=== PATIENT | male | born 1960 | race Caucasian/White ===

== ENCOUNTER 2017-04-04 17:03 | Emergency (ER) | payer MEDICARE ==
[~2017-04-04] VITALS: Ht 193 cm; Wt 92.1 kg
[~2017-04-04 17:03] MED LIST: FLEXERIL10 MG PO; GRALISE600 MG PO; HYDROCODONE BI473 ML PO; IBU-8800 MG PO; INSULIN GL100 UNITS/ SC; KEFLEX500 MG PO; LISINOPRIL5 MG PO; LORTAB 5/500 501 TAB PO; MONTELUKAST SOD10 MG PO; MORPHINE SULFAT30 M3 PO; NOVOLOG FLEX100 U/ML SC; NOVOLOG MI100 UNITS1 SC; ONDANSETRON8 M2 PO; PREVACID 30MG C30 M1 PO; XANAX 1MG TABLET1 MG PO; ZOFRAN4 MG PO
--- OUTSIDE RECORDS SUMMARY | 2017-04-04 17:24 | External Medical Summary Rpt ---
Demographics Preferred Language Yoruba Marital Status Unknown Catholic Affiliation Unknown Race Unknown Ethnic Group Unknown Author Author DAMION Address Unknown Phone [email or web address] Purpose Continuity of Care Document - through 2016
--- OUTSIDE RECORDS SUMMARY | 2017-04-04 17:24 | External Medical Summary Rpt ---
Author Author , DAMION BRUNO Address Unknown Phone [email or web address] Purpose Continuity of Care Document - 07-15-2012 through 2016 Problems Code Diagnosis DOS Provider Status E10.29 Type 1 diabetes mellitus with other diabetic kidney complicatio n E10.40 Type 1 diabetes mellitus with diabetic neuropathy, unspecified E10.41 Type 1 diabetes mellitus with diabetic mononeuropa thy E11.51 Type 2 diabetes mellitus with diabetic peripheral angiopathy without gangrene E78.0 Pure hypercholes terolemia E78.00 Pure hypercholes terolemia, unspecified H90.3 Sensorineur al hearing loss, bilateral I10 Essential (primary) hypertensio n I73.9 Peripheral vascular disease, unspecified I77.1 Stricture of artery K21.9 Gastro-esop hageal reflux disease without esophagitis K31.84 Gastropares is N52.9 Male erectile dysfunction , unspecified R80.9 Proteinuria , unspecified Z71.6 Tobacco abuse counseling Z72.0 Tobacco use Z79.4 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
--- OUTSIDE RECORDS SUMMARY | 2017-04-04 17:24 | External Medical Summary Rpt ---
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
--- OUTSIDE RECORDS SUMMARY | 2017-04-04 17:24 | External Medical Summary Rpt ---
Demographics Preferred Language Icelandic Marital Status Unknown Uatsdin Affiliation Unknown Race Unknown Ethnic Group Unknown Author Author DAMION Address Unknown Phone [email or web address] Purpose Continuity of Care Document - through 2016
--- OUTSIDE RECORDS SUMMARY | 2017-04-04 17:25 | External Medical Summary Rpt ---
Author Author , DAMION BRUNO Address Unknown Phone [email or web address] Name Relationship Address Phone SUDHAKAR, Next Of Kin Unknown Unavailable DIOGENES Immunization Name Date Rout CVX Reac Dose Comm Prov Is Faci e tion ent ider Refu lity Give sed n Zost 12-0 Subc 121 1 mL Hist KHAF No RITE er 6-20 utan oric LANDY AID0 16 eous al AYMA 3938 Info N rmat ion - Sour ce Unsp ecif ied PCV1 12-0 Intr 133 999 Hist D202 No D202 3 1-20 amus oric 94 94 16 cula al r Info rmat ion - Sour ce Unsp ecif ied
--- OUTSIDE RECORDS SUMMARY | 2017-04-04 17:25 | External Medical Summary Rpt ---
Author Author , DAMION BRUNO Address Unknown Phone [email or web address] Name Relationship Address Phone SUDHAKAR, Next [...]
--- OUTSIDE RECORDS SUMMARY | 2017-04-04 17:28 | External Medical Summary Rpt ---
Author Author DAMION Vanessa, [employer] Organization [employer] Address Unknown Phone Unavailable Results Glyco Observa Value Referen Units Interpr Notes Date tion ce etation Range Hemoglo 9.0 <=7.0 % High Referen Mar 182016 A1c/Hem Interva 3:23 PM oglobin l for .total Hgb in A1c\.br Blood \\.br\H gb A1c Interpr etation \.br\-- ------- -- ------- ------- --\.br\ \.br\ < 6.0 Non-Earnestine betic Range\. br\6.0 - 7.0 ADA Therape utic Target\ .br\ > 7.0 Action suggest ed [facility] US LOWER EXTREMITY ARTERIAL DUPLEX COMPLETE Observa Value Referen Units Interpr Notes Date ti ce etation Range This No No No No Mar 13 patient informa informa informa informa 2016 tion in tion in tion in tion in 3:28 PM receive source source source source d an data data data data examina tion at the [facility] are Vascula r Laborat ory.\.b r\The complet e report can be found in the [facility] (English TV) [facility] Medical Record of the patient . VA US LOWER EXTREMITY ARTERIAL PHYSIOLOGICAL W DIGITS Observa Value Referen Units Interpr Notes Date ti ce etation Range This No No No No Mar 13 patient informa informa informa informa 2016 tion in tion in tion in tion in 2:55 PM receive source source source source d an data data data data examina tion at the [facility] are Vascula r Laborat ory.\.b r\The complet e report can be found in the [facility] SwitchNote) [facility] Medical Record of the patient . MRI LUMBAR SPINE WO CONTRAST Observa Value Referen Units Interpr Notes Date ti ce etation Range MRI No No No No Apr 27 LUMBAR informa informa informa informa 2017 SPINE tion in tion in tion in tion in 1:52 PM WO source source source source CONTRAS data data data data T\.br\ 7 1:52 PM heavily adenopa thy\.br \Histor y: 57 years .Male. M54.16- Radicul opathy, lumbar region- ICD-10- CM.\.br \Techni kayla: Axial, sagitta l T1 and T2 imaging .\.br\\ .br\FIN DINGS:\ .br\1. Vertebr al body height, signal preserv ed.\.br \2. Minor disc desicca tion through out lumbar spine. Narrowe d degener ated\.b r\L5-S1 \.br\di sc.\.br \3. T12-L1, L1-L2, L2-L3: Normal disc margin and canal.\ .br\4. L3-L4: Normal disc margin and canal. Minor facet hypertr ophy.\. br\5. L4-L5: Shallow annular bulge with minor facet hypertr ophy. No stenosi s.\.br\ 6. L5-S1: Degener ated disc. Normal disc margin and canal. Minor facet\. br\hype rtrophy .\.br\\ .br\IMP RESSION :\.br\D egenera kailey L5-S1 disc. No focal disc protrus ion. No canal or neural\ .br\for aminal stenosi s. Moderat e degener ative facet hypertr ophy L4-L5 and\.br \L5-S1. \.br\ [facility] US CAROTID DUPLEX BILATERAL Observa Value Referen Units Interpr Notes Date tion ce etation Range This No No No No Sep 29 patient informa informa informa informa 2016 tion in tion in tion in tion in 2:41 PM receive source source source source d an data data data data examina tion at the [facility] are Vascula r Laborat ory.\.b r\The complet e report can be found in the [facility] ([facility]) [facility] k[facility] Medical Record of the patient . LDL Observa Value Referen Units Interpr Notes Date tion ce etation Range LDL 87 <=100 mg/dL No < 100 Sep 2 Calcula informa 2016 kailey tion in 3:23 PM source Optimal data \.br\10 0 - 129 Near or above optimal \.br\13 0 - 159 Borderl ine High\.b r\160 - 189 High\.b r\ >= 190 Very High TSH Observa Value Referen Units Interpr Notes Date tion ce etation Range Thyrotr 3.530 0.270 - mcIU/mL No No Sep 2 opin 4.200 informa informa 2016 [Units/ tion in tion in 3:23 PM volume] source source in data data Serum or Plasma Lipid Refx Observa Value Referen Units Interpr Notes Date tion ce etation Range Cholest 144 <=200 mg/dL No < 200 Sep 2 dulce informa 2016 [Percen tion in 3:23 PM tile] source Desirab data le\.br\ 200 - 239 Borderl ine High\.b r\>= 240 High TRIGLYC 62 <=150 mg/dL No < 150 Sep 2 ERIDES. informa 2016 TOTAL tion in Normal\ 3:23 PM source .br\150 data - 199 Borderl ine High\.b r\200 - 499 High\.b r\ >= 500 Very High CHOLEST 45 >=40 mg/dL No > 60 Sep 2 EROLS.I informa 2016 N HDL tion in Optimal 3:23 PM source \.br\40 data - 60 Accepta ble\.br \ < 40 Low BMP Observa Value Referen Units Interpr Notes Date tion ce etation Range Sodium 135 136 - mmol/L Low No Oct 2 145 informa 2015 tion in 4:14 PM source data Potassi 4.9 3.5 - mmol/L No No Oct 2 um 5.0 informa informa 2015 [Moles/ tion in tion in 4:14 PM volume] source source in data data Serum or Plasma Chlorid 97 98 - mmol/L Low No Oct 2 e 107 informa 2014 tion in 4:14 PM source data Carbon 28 22 - 29 mmol/L No No Oct 2 dioxide informa informa 2015 , total tion in tion in 4:14 PM source source [Moles/ data data volume] in Serum or Plasma Anion 10 7 - 16 mmol/L No No Oct 2 Gap informa informa 2015 tion in tion in 4:14 PM source source data data CALCIUM 9.4 8.6 - mg/dL No No Jun 2 .TOTAL 10.2 informa informa 2014 tion in tion in 4:14 PM source source data data Glucose 378 74 - mg/dL High No Oct 2 Lvl 100 informa 2014 tion in 4:14 PM source data BUN 11 6 - 20 mg/dL No No Oct 2 informa informa 2014 tion in tion in 4:14 PM source source data data Creatin 0.79 0.67 - mg/dL No No Jun 2 ine 1.30 informa informa 2014 tion in tion in 4:14 PM source source data data Glyco Observa Value Referen Units Interpr Notes Date tion ce etation Range Hemoglo 9.7 <=7.0 % High Initial Nov 18 bin 2014 A1c/Hem Diagnos 9:35 AM oglobin tic .total Criteri in a\.br\< Blood 5.7 % Normal\ .br\5.7 - 6.4 % At risk for diabete s mellitu s\.br\> = 6.5 % Consist ent with diabete s mellitu s\.br\\ .br\Earnestine betes monitor ing\.br \Target Value (ADA recomme nded): < 7 % Lipid Scr Observa Value Referen Units Interpr Notes Date tion ce etation Range Cholest 153 <=200 mg/dL No < 200 Nov 17 dulce informa 2015 [Percen tion in 9:45 PM tile] source Desirab data le\.br\ 200 - 239 Borderl ine High\.b r\>= 240 High TRIGLYC 123 <=150 mg/dL No < 150 Nov 17 ERIDES. informa 2015 TOTAL tion in Normal\ 9:45 PM source .br\150 data - 199 Borderl ine High\.b r\200 - 499 High\.b r\ >= 500 Very High CHOLEST 47 >=40 mg/dL No > 60 Nov 17 EROLS.I informa 2015 N HDL tion in Optimal 9:45 PM source \.br\40 data - 60 Accepta ble\.br \ < 40 Low LDL 81 <=100 mg/dL No < 100 Nov 17 Calcula informa 2015 kailey tion in 9:45 PM source Optimal data \.br\10 0 - 129 Near or above optimal \.br\13 0 - 159 Borderl ine High\.b r\160 - 189 High\.b r\ >= 190 Very High Auto Diff Observa Value Referen Units Interpr Notes Date tion ce etation Range Neutrop 60.6 No % No No Feb 27 hils informa informa informa 2014 [#/volu tion in tion in tion in 9:24 PM me] in source source source Blood data data data by Automat ed count Lymphoc 31.2 No % No No Feb 27 ytes informa informa informa 2014 [#/volu tion in tion in tion in 9:24 PM me] in source source source Blood data data data by Automat ed count Monocyt 7.0 No % No No Feb 27 es informa informa informa 2014 [#/volu tion in tion in tion in 9:24 PM me] in source source source Blood data data data by Automat ed count Eos 0.6 No % No No Feb 27 Percent informa informa informa 2015 tion in tion in tion in 9:24 PM source source source data data data Baso 0.6 No % No No Feb 27 Percent informa informa informa 2015 tion in tion in tion in 9:24 PM source source source data data data Neut# 5.5 1.8 - x10(3)/ No No Feb 27 7.7 mcL informa informa 2014 tion in tion in 9:24 PM source source data data Lymph# 2.8 0.6 - x10(3)/ No No Feb 27 4.8 mcL informa informa 2014 tion in tion in 9:24 PM source source data data Bethel# 0.6 0.0 - x10(3)/ No No Feb 27 1.3 mcL informa informa 2015 tion in tion in 9:24 PM source source data data Eos# 0.1 0.0 - x10(3)/ No No Feb 27 0.5 mcL informa informa 2015 tion in tion in 9:24 PM source source data data Baso# 0.1 0.0 - x10(3)/ No No Feb 27 0.2 mcL informa informa 2015 tion in tion in 9:24 PM source source data data CBC Observa Value Referen Units Interpr Notes Date tion ce etation Range LEUKOCY 9.1 4.0 - x10(3)/ No No Nov 17 GRETA 11.0 mcL informa informa 2014 tion in tion in 9:24 PM source source data data Erythro 4.75 4.30 - x10(6)/ No No Nov 17 cytes 5.81 mcL informa informa 2014 [#/volu tion in tion in 9:24 PM me] in source source Blood data data by Automat ed count Hemoglo 14.4 13.5 - gm/dL No No Nov 17 bin 17.1 informa informa 2014 [Mass/v tion in tion in 9:24 PM olume] source source in data data Blood Hematoc 42.5 38.9 - % No No Nov 17 rit 51.6 informa informa 2014 [Volume tion in tion in 9:24 PM source source Fractio data data n] of Blood by Automat ed count Erythro 89.5 82.5 - fL No No Nov 17 cyte 99.8 informa informa 2015 mean tion in tion in 9:24 PM corpusc source source ular data data volume [Entiti c volume] by Automat ed count Erythro 30.4 27.0 - pg No No Nov 17 cyte 34.3 informa informa 2015 mean tion in tion in 9:24 PM corpusc source source ular data data hemoglo bin [Entiti c mass] by Automat ed count Erythro 33.9 32.1 - gm/dL No No Nov 17 cyte 35.3 informa informa 2015 mean tion in tion in 9:24 PM corpusc source source ular data data hemoglo bin concent ration [Mass/v olume] by Automat ed count Erythro 13.8 11.5 - % No No Nov 17 cyte 15.0 informa informa 2015 distrib tion in tion in 9:24 PM ution source source width data data [Ratio] by Automat ed count Platele 208 144 - x10(3)/ No No Nov 17 ts 423 mcL informa informa 2015 [#/volu tion in tion in 9:24 PM me] in source source Blood data data by Automat ed count MPV 9.4 6.8 - fL No No Nov 17 10.8 informa informa 2014 tion in tion in 9:24 PM source source data data Glu Bed Observa Value Referen Units Interpr Notes Date tion ce etation Range GLU BED 311 70 - mg/dL High No Aug 26 100 informa 2013 tion in 11:30 source AM data Glu Bed Observa Value Referen Units Interpr Notes Date tion ce etation Range GLU BED 92 70 - mg/dL No No Aug 26 100 informa informa 2014 tion in tion in 7:29 AM source source data data Phos Observa Value Referen Units Interpr Notes Date tion ce etation Range Phospha 2.8 2.5 - mg/dL No No Aug 26 te 4.5 informa informa 2013 [Mass/v tion in tion in 7:00 AM olume] source source in data data Serum or Plasma Mg Observa Value Referen Units Interpr Notes Date tion ce etation Range Magnesi 1.9 1.6 - mg/dL No No Aug 26 um 2.4 informa informa 2013 [Moles/ tion in tion in 7:00 AM volume] source source in data data Serum or Plasma Glu Bed Observa Value Referen Units Interpr Notes Date tion ce etation Range GLU BED 255 70 - mg/dL High No Aug 25 100 informa 2013 tion in 9:00 PM source data Glu Bed Observa Value Referen Units Interpr Notes Date tion ce etation Range GLU BED 193 70 - mg/dL High No Aug 25 100 informa 2013 tion in 5:36 PM source data Glu Bed Observa Value Referen Units Interpr Notes Date tion ce etation Range GLU BED 352 70 - mg/dL High No Aug 25 100 informa 2013 tion in 12:57 source PM data Glu Bed Observa Value Referen Units Interpr Notes Date tion ce etation Range GLU BED 392 70 - mg/dL High No Aug 25 100 informa 2013 tion in 10:53 source AM data NM HEPATOBILIARY W GBEF Observa Value Referen Units Interpr Notes Date tion ce etation Range Biliary No No No No Aug 25 informa informa informa informa 2014 drainag tion in tion in tion in tion in 9:40 AM e scan source source source source with data data data data gallbla dder ejectio n fractio n\.br\\ .br\849 a.m., 5 Decembe r 14, [id number] \.br\\. br\Pain , 6.3 mCi technet ium rohan velasquez, gallbla dder stimula tion with boost\. br\supp lement\ .br\\.b r\\.br\ \.br\Pa renchym al phase images of the liver are normal. At 15 minutes the bile\.b r\ducts and gallbla dder\.b r\visua lize and at 30 minutes the bowel visuali zes. The calcula kailey\.br \gallbl adder ejectio n fractio n\.br\i s 78% is normal. \.br\\. br\\.br \\.br\I MPRESSI ON:\.br \\.br\N ormal biliary drainag e scan\.b r\\.br\ Normal 78% gallbla dder ejectio n fractio n\.br\\ .br\Mar ks Glu Bed Observa Value Referen Units Interpr Notes Date tion ce etation Range GLU BED 241 70 - mg/dL High No Aug 25 100 informa 2013 tion in 8:18 AM source data Phos Observa Value Referen Units Interpr Notes Date tion ce etation Range Phospha 2.1 2.5 - mg/dL Low No Aug 25 te 4.5 informa 2013 [Mass/v tion in 7:38 AM olume] source in data Serum or Plasma Mg Observa Value Referen Units Interpr Notes Date tion ce etation Range Magnesi 1.8 1.6 - mg/dL No No Aug 25 um 2.4 informa informa 2013 [Moles/ tion in tion in 7:38 AM volume] source source in data data Serum or Plasma Glu Bed Observa Value Referen Units Interpr Notes Date tion ce etation Range GLU BED 211 70 - mg/dL High No Aug 24 100 informa 2013 tion in 8:14 PM source data Glu Bed Observa Value Referen Units Interpr Notes Date tion ce etation Range GLU BED 304 70 - mg/dL High No Aug 24 100 informa 2013 tion in 5:24 PM source data UA Observa Value Referen Units Interpr Notes Date tion ce etation Range UA Yellow No No No No Aug 4 Color informa informa informa informa 2013 tion in tion in tion in tion in 4:02 PM source source source source data data data data UA Clear Clear No No No Aug 24 Appear informa informa informa 2013 tion in tion in tion in 4:02 PM source source source data data data UA Negativ Negativ No No No Aug 24 Glucose e e informa informa informa 2013 tion in tion in tion in 4:02 PM source source source data data data UA >=80 Negativ No Abnorma No Aug 24 Ketones mg/dl e informa l informa 2013 tion in ti in 4:02 PM source source data data UA Negativ Negativ No No No Aug 24 Blood e e informa informa informa 2013 tion in tion in ti in 4:02 PM source source source data data data UA pH 6.0 5.0 - No No Referen Aug 24 8.0 informa informa ce 2013 tion in tion in range 4:02 PM source source valid data data for random specime ns only. UA Trace Negativ No Abnorma No Aug 24 Protein e informa l informa 2013 tion in ti in 4:02 PM source source data data UA 0.2 <=1 No No No Aug 24 Urobili mg/dl mg/dl informa informa informa 2013 nogen tion in tion in ti in 4:02 PM source source source data data data UA Negativ Negativ No No No Aug 24 Nitrite e e informa informa informa 2013 tion in tion in tion in 4:02 PM source source source data data data UA Leuk Negativ Negativ No No No Aug 24 Est e e informa informa informa 2013 tion in tion in tion in 4:02 PM source source source data data data UA Spec >=1.030 No No No Referen Aug 24 Grav informa informa informa ce 2013 tion in tion in tion in range 4:02 PM source source source valid data data data for random specime ns only. UA WBC 3-5 No /HPF No No Aug 24 informa informa informa 2013 tion in tion in tion in 4:02 PM source source source data data data UA RBC 3-5 No /HPF Abnorma No Aug 24 informa l informa 2013 tion in tion in 4:02 PM source source data data UA 3-5 No /HPF No No Aug 24 Squam informa informa informa 2014 Epi tion in tion in tion in 4:02 PM source source source data data data Glu Bed Observa Value Referen Units Interpr Notes Date tion ce etation Range GLU BED 198 70 - mg/dL High No Aug 24 100 informa 2013 tion in 2:14 PM source data Glu Bed Observa Value Referen Units Interpr Notes Date tion ce etation Range GLU BED 180 70 - mg/dL High No Aug 24 100 informa 2013 tion in 1:15 PM source data Glu Bed Observa Value Referen Units Interpr Notes Date tion ce etation Range GLU BED 156 70 - mg/dL High No Aug 24 100 informa 2013 tion in 11:49 source AM data US RIGHT UPPER QUADRANT Observa Value Referen Units Interpr Notes Date tion ce etation Range US No No No No Aug 24 RIGHT informa informa informa informa 2014 UPPER tion in tion in tion in tion in 11:37 QUADRAN source source source source AM T Aug data data data data 2013 11:37:2 9 AM\.br\ \.br\HI STORY: -biliou s vomitin g, abdomin al pain.\. br\\.br \Compar e: r 2013\.b r\Study somewha t limited due to overlyi ng bowel gas\.br \Gallbl adder normal. Portion s of liver, pancrea s, common duct, and right\. br\kidn ey visuali zed are\.br \normal . Common duct measure ment of 6 mm obtaine d.\.br\ \.br\Im pressio n: Normal. Phos Observa Value Referen Units Interpr Notes Date tion ce etation Range Phospha 2.2 2.5 - mg/dL Low No Aug 24 te 4.5 informa 2013 [Mass/v tion in 11:49 olume] source AM in data Serum or Plasma Mg Observa Value Referen Units Interpr Notes Date ti ce etation Range Magnesi 2.1 1.6 - mg/dL No No Aug 24 um 2.4 informa informa 2013 [Moles/ tion in tion in 11:49 volume] source source AM in data data Serum or Plasma Glu Bed Observa Value Referen Units Interpr Notes Date ce etation Range GLU BED 121 70 - mg/dL High No Aug 24 100 informa 2013 tion in 10:27 source AM data Glu Bed Observa Value Referen Units Interpr Notes Date ti ce etation Range GLU BED 101 70 - mg/dL High No Aug 24 100 informa 2013 tion in 9:01 AM source data XR ACUTE ABDOMEN SUPINE ERECT AND OR DECUBITUS W 1 VW CHEST Observa Value Referen Units Interpr Notes Date ce etation Range Acute No No No No Aug 24 abdomin informa informa informa informa 2013 al tion in tion in tion in tion in 8:25 AM series source source source source (portab data data data data le upright AP chest; supine, upright , and\.br \left lateral decubit us\.br\ abdomen ) dated 08/24/20 14\.br\ \.br\CO MPARISO N: Portabl e chest from 08/24/20 14\.br\ \.br\HI STORY: Abnorma l bowel sounds, nausea, vomitin g\.br\\ .br\FIN DINGS:\ .br\\.b r\Aorti c calcifi cation noted. Enteric tube termina greta over the epigast anusha\.br \region in the expecte d\.br\r egion of the distal stomach or proxima l duodenu m. Heart size and\.br \medias tinal contour s are\.br \stable and within normal limits. There is a 1.5 cm nodular opacity \.br\pr ojected over the right\. br\midl juancarlos which is fairly dense and is most likely calcifi ed, related to old\.br \healed granulo matous\ .br\dis ease. Lungs are otherwi se clear of conflue nt airspac e opacity . No\.br\ pneumot horax or pleural \.br\ef fusion identif ied.\.b r\\.br\ There is a moderat e amount of stool in the distal sigmoid colon and\.br \rectum . Mild amount of gas\.br \and stool noted in the colon, greates t on the left. There is a small\. br\amou nt of small bowel gas\.br \in the right abdomen . No distend ed gas-naomie led small bowel loops are\.br \identi fied. No free air or\.br\ air-flu id levels identif ied. No suspici ous soft tissue calcifi cations are\.br \seen.\ .br\\.b r\IMPRE SSION:\ .br\1. Nonspec ific nonobst ructive bowel gas pattern demonst rating a moderat e\.br\a mount of stool in the\.br \distal sigmoid colon and rectum. \.br\2. No evidenc e of free air.\.b r\3. Stable portabl e chest. Glu Bed Observa Value Referen Units Interpr Notes Date tion ce etation Range GLU BED 91 70 - mg/dL No No Aug 24 100 informa informa 2013 tion in tion in 7:50 AM source source data data Lipase Observa Value Referen Units Interpr Notes Date tion ce etation Range Sample in lab Lipase 6 13 - 60 IU/L Low No Aug 24 Lvl informa 2013 tion in 8:16 AM source data Phos Observa Value Referen Units Interpr Notes Date tion ce etation Range Phospha 2.1 2.5 - mg/dL Low No Aug 24 te 4.5 informa 2013 [Mass/v tion in 7:47 AM olume] source in data Serum or Plasma Mg Observa Value Referen Units Interpr Notes Date tion ce etation Range Magnesi 2.4 1.6 - mg/dL No No Aug 24 um 2.4 informa informa 2013 [Moles/ tion in tion in 7:47 AM volume] source source in data data Serum or Plasma Glu Bed Observa Value Referen Units Interpr Notes Date tion ce etation Range GLU BED 87 70 - mg/dL No No Aug 24 100 informa informa 2013 tion in tion in 6:47 AM source source data data Glu Bed Observa Value Referen Units Interpr Notes Date tion ce etation Range GLU BED 123 70 - mg/dL High No Aug 24 100 informa 2013 tion in 5:42 AM source data Glu Bed Observa Value Referen Units Interpr Notes Date tion ce etation Range GLU BED 121 70 - mg/dL High No Aug 24 100 inform2013 tion in 4:44 AM source data XR CHEST AP PORTABLE Observa Value Referen Units Interpr Notes Date tion ce etation Range CLINICA No No No No Aug 24 L informa informa informa informa 2013 HISTORY tion in tion in tion in tion in 3:47 AM : -FOR source source source source [employer] data data data data tric tube placeme nt\.br\ \.br\CO MPARISO N: None.\. br\\.br \TECHNI QUE: XR CHEST AP PORTABL E on Aug 24, 2014 03:47:3 7 AM.\.br \\.br\F INDINGS : The [employer] tric tube tip and sidehol e are in the stomach .\.br\G ranulom atous\. br\calc ificati ons are noted. There is no pneumot horax or pleural effusio n.\.br\ The heart size and\.br \pulmon chan vascula rity are normal. \.br\\. br\IMPR ESSION: Satisfa ctory positio nancie of the [employer] tric tube. Glu Bed Observa Value Referen Units Interpr Notes Date ti ce etation Range GLU BED 118 70 - mg/dL High No Aug 24 100 inform2013 tion in 3:47 AM source data Mg Observa Value Referen Units Interpr Notes Date tion ce etation Range Magnesi 2.3 1.6 - mg/dL No No Aug 24 um 2.4 informa informa 2013 [Moles/ tion in tion in 4:12 AM volume] source source in data data Serum or Plasma Phos Observa Value Referen Units Interpr Notes Date tion ce etation Range Phospha 2.1 2.5 - mg/dL Low No Aug 24 te 4.5 informa 2013 [Mass/v tion in 4:12 AM olume] source in data Serum or Plasma Glu Bed Observa Value Referen Units Interpr Notes Date tion ce etation Range GLU BED 80 70 - mg/dL No No Aug 24 100 informa informa 2013 tion in tion in 2:46 AM source source data data Glu Bed Observa Value Referen Units Interpr Notes Date tion ce etation Range GLU BED 68 70 - mg/dL Low No Dec 100 informa 2013 tion in 2:21 AM source data Glu Bed Observa Value Referen Units Interpr Notes Date tion ce etation Range GLU BED 64 70 - mg/dL Low No Aug 24 100 informa 2013 tion in 1:44 AM source data Glu Bed Observa Value Referen Units Interpr Notes Date tion ce etation Range GLU BED 114 70 - mg/dL High No Aug 24 100 informa 2013 tion in 12:35 source AM data Glu Bed Observa Value Referen Units Interpr Notes Date tion ce etation Range GLU BED 142 70 - mg/dL High No Aug 23 100 informa 2013 tion in 11:34 source PM data Phos Observa Value Referen Units Interpr Notes Date tion ce etation Range Phospha 1.4 2.5 - mg/dL Low No Aug 24 te 4.5 informa 2013 [Mass/v tion in 1:27 AM olume] source in data Serum or Plasma Mg Observa Value Referen Units Interpr Notes Date tion ce etation Range Magnesi 2.1 1.6 - mg/dL No No Aug 24 um 2.4 informa informa 2013 [Moles/ tion in tion in 1:27 AM volume] source source in data data Serum or Plasma Glu Bed Observa Value Referen Units Interpr Notes Date tion ce etation Range GLU BED 192 70 - mg/dL High No Aug 23 100 informa 2013 tion in 10:37 source PM data Glu Bed Observa Value Referen Units Interpr Notes Date tion ce etation Range GLU BED 259 70 - mg/dL High No Dec 3 100 informa 2013 tion in 9:41 PM source data Glu Bed Observa Value Referen Units Interpr Notes Date tion ce etation Range GLU BED 236 70 - mg/dL High No Dec 3 100 informa 2013 tion in 8:43 PM source data Glu Bed Observa Value Referen Units Interpr Notes Date tion ce etation Range GLU BED 339 70 - mg/dL High No Dec 3 100 informa 2013 tion in 7:14 PM source data Glu Bed Observa Value Referen Units Interpr Notes Date ti ce etation Range GLU BED 334 70 - mg/dL High No Aug 23 100 informa 2013 tion in 6:19 PM source data Glu Bed Observa Value Referen Units Interpr Notes Date ti ce etation Range GLU BED 370 70 - mg/dL High No Aug 23 100 informa 2013 tion in 5:16 PM source data Acetone Observa Value Referen Units Interpr Notes Date ti ce etation Range Acetone Moderat No No Abnorma No Aug 23 e informa informa l informa 2013 tion in tion in tion in 4:59 PM source source source data data data VBG Observa Value Referen Units Interpr Notes Date ti ce etation Range pH Homer 7.32 7.32 - No No No Aug 23 7.42 informa informa informa 2014 tion in tion in tion in 4:51 PM source source source data data data pCO2 29 41 - 51 mmHg Low No Aug 23 Homer informa 2013 tion in 4:51 PM source data pO2 Homer 140 25 - 40 mmHg High No Aug 23 informa 2013 tion in 4:51 PM source data Base -9.9 No mEq/L No No Aug 23 Excess informa informa informa 2014 Homer tion in tion in ti in 4:51 PM source source source data data data HCO3 14 No mmol/L No No Aug 23 Homer informa informa informa 2014 tion in tion in tion in 4:51 PM source source source data data data CO2 15 25 - 29 mmol/L Low No Aug 23 Totl informa 2013 [place] tion in 4:51 PM source data O2 Sat 98 No % No No Aug 23 [place] informa informa informa 2013 tion in tion in tion in 4:51 PM source source source data data data EK EKG 12 LEAD Observa Value Referen Units Interpr Notes Date ti ce etation Range Station No No No No Aug 23 chan ECG informa informa informa informa 2013 tion in tion in tion in tion in 2:45 PM Study\. source source source source br\St. data data data data Elizabe th [place] Co\.br\ Interpr etive Stateme nts\.br \Sinus rhythm\ .br\rSr '(V1) - probabl e normal variant \.br\No rmal ECG\.br \No previou s ECG availab le for compari son\.br \Electr onicall y Signed On 2014-08 22:08:2 8 EST by Florian Hylton MD Lipase Observa Value Referen Units Interpr Notes Date tion ce etation Range Lipase 5 13 - 60 IU/L Low No Dec 3 Lvl informa 2013 tion in 3:04 PM source data Auto Diff Observa Value Referen Units Interpr Notes Date tion ce etation Range Neutrop 91.9 No % No No Dec 3 hils informa informa informa 2013 [#/volu tion in tion in tion in 2:45 PM me] in source source source Blood data data data by Automat ed count Lymphoc 4.5 No % No No Dec 3 ytes informa informa informa 2013 [#/volu tion in tion in tion in 2:45 PM me] in source source source Blood data data data by Automat ed count Monocyt 3.3 No % No No Dec 3 es informa informa informa 2013 [#/volu tion in tion in tion in 2:45 PM me] in source source source Blood data data data by Automat ed count Eos 0.0 No % No No Dec 3 Percent informa informa informa 2013 tion in tion in tion in 2:45 PM source source source data data data Baso 0.3 No % No No Dec 3 Percent informa informa informa 2013 tion in tion in tion in 2:45 PM source source source data data data Neut# 15.3 1.8 - x10(3)/ High No Dec 3 7.7 mcL informa 2013 tion in 2:45 PM source data Lymph# 0.7 0.6 - x10(3)/ No No Dec 3 4.8 mcL informa informa 2013 tion in tion in 2:45 PM source source data data Bethel# 0.5 0.0 - x10(3)/ No No Dec 3 1.3 mcL informa informa 2014 tion in tion in 2:45 PM source source data data Eos# 0.0 0.0 - x10(3)/ No No Dec 3 0.5 mcL informa informa 2013 tion in tion in 2:45 PM source source data data Baso# 0.0 0.0 - x10(3)/ No No Aug 23 0.2 [facility] informa informa 2013 tion in tion in 2:45 PM source source data data CBC Observa Value Referen Units Interpr Notes Date tion ce etation Range LEUKOCY 16.6 4.0 - x10(3)/ High No Aug 23 GRETA 11.0 [facility] inform2013 tion in 2:45 PM source data Erythro 5.17 4.30 - x10(6)/ No No Aug 23 cytes 5.81 [facility] informa informa 2013 [#/volu tion in tion in 2:45 PM me] in source source Blood data data by Automat ed count Hemoglo 15.2 13.5 - gm/dL No No Aug 23 bin 17.1 informa informa 2013 [Mass/v tion in tion in 2:45 PM olume] source source in data data Blood Hematoc 46.3 38.9 - % No No Aug 23 rit 51.6 informa informa 2013 [Volume tion in tion in 2:45 PM source source Fractio data data n] of Blood by Automat ed count Erythro 89.6 82.5 - fL No No Aug 23 cyte 99.8 informa informa 2013 mean tion in tion in 2:45 PM corpusc source source ular data data volume [Entiti c volume] by Automat ed count Erythro 29.5 27.0 - pg No No Aug 23 cyte 34.3 informa informa 2013 mean tion in tion in 2:45 PM corpusc source source ular data data hemoglo bin [Entiti c mass] by Automat ed count Erythro 32.9 32.1 - gm/dL No No Aug 23 cyte 35.3 informa informa 2013 mean tion in tion in 2:45 PM corpusc source source ular data data hemoglo bin concent ration [Mass/v olume] by Automat ed count Erythro 13.4 11.5 - % No No Aug 23 cyte 15.0 informa informa 2013 distrib tion in tion in 2:45 PM ution source source width data data [Ratio] by Automat ed count Platele 244 144 - x10(3)/ No No Aug 23 ts 423 mcL informa informa 2013 [#/volu tion in tion in 2:45 PM me] in source source Blood data data by Automat ed count MPV 8.5 6.8 - fL No No Aug 23 10.8 informa informa 2013 tion in tion in 2:45 PM source source data data US RIGHT UPPER QUADRANT Observa Value Referen Units Interpr Notes Date tion ce etation Range Right No No No No Jul 11 upper informa informa informa informa 2013 quadran tion in tion in tion in tion in 11:18 t source source source source AM abdomin data data data data al ultraso und dated 014\.br \\.br\C OMPARIS ON: None\.b r\\.br\ HISTORY : Right upper quadran t pain, esophag eal reflux\ .br\\.b r\FINDI NGS:\.b r\\.br\ Visuali zed portion s of the liver are within normal limits. No evidenc e of\.br\ biliary ductal\ .br\dil atation . Common duct measure s 4 mm in diamete r proxima lly. There is a\.br\m ild amount of\.br\ echogen ic materia l in the gallbla dder which appears to be mobile between \.br\po sitions . No\.br\ shadowi ng stones are seen. No evidenc e of gallbla dder wall thicken ing or\.br\ pericho lecysti c fluid.\ .br\Son ographi c Fonseca sign was reporte dly negativ e. The pancrea s is poorly\ .br\vis ualized , obscure d\.br\b y bowel gas. Limited images of the right kidney demonst rate no evidenc e\.br\o f right\. br\hydr onephro sis.\.b r\\.br\ IMPRESS ION:\.b r\1. Mild amount of gallbla dder sludge. \.br\2. No sonogra phic evidenc e of gallsto paul, acute cholecy stitis, or biliary \.br\du ctal dilatat ion.\.b r\3. Poorly visuali zed pancrea s due to overlyi ng bowel gas. Colonoscopy Observa Value Referen Units Interpr Notes Date tion ce etation Range Colonos Colonos No No No No Jun 21 copy copy informa informa informa informa 2013 Report\ tion in tion in tion in tion in 12:30 .br\Naga source source source source PM e: data data data data 014 12:30 PM\.br\ Patient Name: ANGELINA DE LA FUENTE\. br\Gend er: Male\.b r\\.br\ 9\.br\D OB(age) : 89 (54)\.b r\\.br\ \.br\En doscopi st(s):\ .br\Chi ke Anusion MD shaq\.br\ \.br\\. br\Inst rument( s): Blue/Gr ay(2500 493)\.b r\\.br\ \.br\\. br\\.br \\.br\\ .br\Ref erring Physici an(s):\ .br\GAR Y Arnol BOOKER\ .br\[address], [facility] [address]\.br \ (phone) \.br\([phone] (fax)\. br\\.br \\.br\A SA Class: P2 - 014 01:19:1 2 PM Migue Anusion shaq\.br\ \.br\\. br\\.br \Admini stered Medicat ions: Benadry l 50 mg IV\.br\ Fentany l 150 mcg IV\.br\ Versed 8 mg IV\.br\ \.br\In dicatio ns: Screeni ng, Colorec kimberly Cancer - V76.51\ .br\Fam anahi History of Colon Cancer. Sister had colon cancer at 50yo - V16.0\. br\Proc edure:\ .br\The procedu re, indicat ions, prepara tion and potenti al complic ations were\.b r\expla ined to the patient , who indicat ed underst anding and signed the\.br \corres ponding consent forms. Conscio us sedatio n was adminis tered. Continu ous\.br \pulse oximetr y, blood pressur e, and bus monitor ing was done. Supplem ental\. br\oxyg en was used. The quality of prepara tion was Good. Patient was placed in left\.b r\later al decubit us positio n. The colonos cope was introdu sherwin through rectum and\.br \advanc ed under direct visuali zation until cecum was reached The appendi ceal\.b r\orifi ce and the ileo-ce kayla valve were identif ied. The colonos cope was\.br \retrof lexed within the rectum. Careful visuali zation was perform ed as the\.br \instru ment was withdra wn. There were no apparen t limitat ions or complic ations. \.br\Pa tient toleran ce to procedu re was excelle nt. The procedu re was not difficu lt.\.br \Digita l exam was normal. Withdra wal time was 8 minutes ..\.br\ \.br\Fi ndings: \.br\Fl at lesions A single small non-ble eding localiz ed angioec emma was seen in the\.br \proxim al transve rse colon.\ .br\Pro truding lesions A single sessile 4 mm polyp of benign appeara nce was found in\.br\ the sigmoid colon. A single- piece polypec renato was perform ed using a hot snare.\ .br\com pletely removed and retriev ed\.br\ Small interna l hemorrh oids were noted.\ .br\\.b r\Impre ssions: \.br\Po lyp (4 mm) in the sigmoid colon. (Polype ctomy). \.br\In ternal hemorrh oids.\. br\Inez oectasi a in the proxima l transve rse colon.\ .br\\.b r\\.br\ Plan: Await patholo gy results \.br\Re peat Colonos copy in 5 years due to family history .\.br\B egin a daily fiber supplem ent as directe d\.br\F ollow-u p with referri ng provide r / physici an\.br\ \.br\\. br\Path ology: Pathjeanna gy was sent to lab, waiting for results \.br\\. br\\.br \\.br\C francine new MD\.br\ Electro nically signed on 06/21/20 14 1:20:54 PM by Migue new MD\.br\ Glyco Observa Value Referen Units Interpr Notes Date tion ce etation Range Hemoglo 8.7 <=7.0 % High Initial Apr 042013 A1c/Hem Diagnos 3:13 PM oglobin tic .total Criteri in a\.br\< Blood 5.7 % Normal\ .br\5.7 - 6.4 % At risk for diabete s mellitu s\.br\> = 6.5 % Consist ent with diabete s mellitu s\.br\\ .br\Earnestine betes monitor ing\.br \Target Value (ADA recomme nded): < 7 % Auto Diff Observa Value Referen Units Interpr Notes Date tion ce etation Range Neutrop 67.2 No % No No Apr 03 hils informa informa informa 2013 [#/volu tion in tion in tion in 8:33 PM me] in source source source Blood data data data by Automat ed count Lymphoc 22.5 No % No No Apr 03 ytes informa informa informa 2013 [#/volu tion in tion in tion in 8:33 PM me] in source source source Blood data data data by Automat ed count Monocyt 7.1 No % No No Apr 03 es informa informa informa 2013 [#/volu tion in tion in tion in 8:33 PM me] in source source source Blood data data data by Automat ed count Eos 2.5 No % No No Apr 03 Percent informa informa informa 2013 tion in tion in tion in 8:33 PM source source source data data data Baso 0.7 No % No No Apr 03 Percent informa informa informa 2013 tion in tion in tion in 8:33 PM source source source data data data Neut# 4.2 1.8 - x10(3)/ No No Apr 03 7.7 mcL informa informa 2013 tion in tion in 8:33 PM source source data data Lymph# 1.4 0.6 - x10(3)/ No No Mar 14 4.8 mcL informa informa 2014 tion in tion in 8:33 PM source source data data Bethel# 0.4 0.0 - x10(3)/ No No Apr 03 1.3 mcL informa informa 2013 tion in tion in 8:33 PM source source data data Eos# 0.2 0.0 - x10(3)/ No No Mar 14 0.5 mcL informa informa 2014 tion in tion in 8:33 PM source source data data Baso# 0.0 0.0 - x10(3)/ No No Apr 03 0.2 mcL informa informa 2013 tion in tion in 8:33 PM source source data data CBC Observa Value Referen Units Interpr Notes Date tion ce etation Range LEUKOCY 6.2 4.0 - x10(3)/ No Apr 03 GRETA 11.0 [facility] informa informa 2013 tion in tion in 8:33 PM source source data data Erythro 4.64 4.30 - x10(6)/ No Apr 03 cytes 5.81 [facility] informa informa 2013 [#/volu tion in tion in 8:33 PM me] in source source Blood data data by Automat ed count Hemoglo 13.9 13.5 - gm/dL No Apr 03 bin 17.1 informa informa 2013 [Mass/v tion in tion in 8:33 PM olume] source source in data data Blood Hematoc 41.0 38.9 - % No Apr 03 rit 51.6 informa informa 2013 [Volume tion in tion in 8:33 PM source source Fractio data data n] of Blood by Automat ed count Erythro 88.3 82.5 - fL No Apr 03 cyte 99.8 informa informa 2013 mean tion in tion in 8:33 PM corpusc source source ular data data volume [Entiti c volume] by Automat ed count Erythro 29.9 27.0 - pg No Apr 03 cyte 34.3 informa informa 2013 mean tion in tion in 8:33 PM corpusc source source ular data data hemoglo bin [Entiti c mass] by Automat ed count Erythro 33.9 32.1 - gm/dL No No Apr 03 cyte 35.3 informa informa 2013 mean tion in tion in 8:33 PM corpusc source source ular data data hemoglo bin concent ration [Mass/v olume] by Automat ed count Erythro 13.9 11.5 - % No No Apr 03 cyte 15.0 informa informa 2014 distrib tion in tion in 8:33 PM ution source source width data data [Ratio] by Automat ed count Platele 179 144 - x10(3)/ No No Apr 03 ts 423 mcL informa informa 2013 [#/volu tion in tion in 8:33 PM me] in source source Blood data data by Automat ed count MPV 8.6 6.8 - fL No No Apr 03 10.8 informa informa 2013 tion in tion in 8:33 PM source source data data Free T4 Observa Value Referen Units Interpr Notes Date tion ce etation Range Thyroxi 1.41 0.93 - ng/dL No No Apr 03 ne (T4) 1.70 informa informa 2014 free tion in tion in 8:26 PM [Mass/v source source olume] data data in Serum or Plasma LDL Observa Value Referen Units Interpr Notes Date tion ce etation Range LDL 83 <=100 mg/dL No < 100 Apr 03 Calcula informa 2014 kailey tion in 8:25 PM source Optimal data \.br\10 0 - 129 Near or above optimal \.br\13 0 - 159 Borderl ine High\.b r\160 - 189 High\.b r\ >= 190 Very High TSH Observa Value Referen Units Interpr Notes Date tion ce etation Range Thyrotr 3.310 0.270 - mcIU/mL No No Apr 03 opin 4.200 informa informa 2013 [Units/ tion in tion in 8:25 PM volume] source source in data data Serum or Plasma Lipid Refx Observa Value Referen Units Interpr Notes Date tion ce etation Range Cholest 154 <=200 mg/dL No < 200 Apr 03 dulce informa 2014 [Percen tion in 8:25 PM tile] source Desirab data le\.br\ 200 - 239 Borderl ine High\.b r\>= 240 High TRIGLYC 134 <=150 mg/dL No < 150 Apr 03 ERIDES. inform2013 TOTAL tion in Normal\ 8:25 PM source .br\150 data - 199 Borderl ine High\.b r\200 - 499 High\.b r\ >= 500 Very High CHOLEST 44 >=40 mg/dL No > 60 Apr 03 EROLS.I informa 2013 N HDL tion in Optimal 8:25 PM source \.br\40 data - 60 Accepta ble\.br \ < 40 Low Glyco Observa Value Referen Units Interpr Notes Date tion ce etation Range Hemoglo 8.4 <=7.0 % High Initial Nov 022013 A1c/Hem Diagnos 2:24 PM oglobin tic .total Criteri in a\.br\< Blood 5.7 % Normal\ .br\5.7 - 6.4 % At risk for diabete s mellitu s\.br\> = 6.5 % Consist ent with diabete s mellitu s\.br\\ .br\Earnestine betes monitor ing\.br \Target Value (ADA recomme nded): < 7 % LDL Observa Value Referen Units Interpr Notes Date tion ce etation Range Cholest 99 <=100 mg/dL No < 100 Nov 02 dulce in inform2013 LDL tion in 1:21 AM [Mass/v source Optimal olume] data \.br\10 in 0 - 129 Serum or Near or Plasma above by optimal calcula \.br\13 tion 0 - 159 Borderl ine High\.b r\160 - 189 High\.b r\ >= 190 Very High Lipid Refx Observa Value Referen Units Interpr Notes Date tion ce etation Range Cholest 164 <=200 mg/dL No < 200 Oct 12 dulce informa 2013 [Percen tion in 1:21 AM tile] source Desirab data le\.br\ 200 - 239 Borderl ine High\.b r\>= 240 High TRIGLYC 85 <=150 mg/dL No < 150 Nov 02 ERIDES. inform2013 TOTAL tion in Normal\ 1:21 AM source .br\150 data - 199 Borderl ine High\.b r\200 - 499 High\.b r\ >= 500 Very High CHOLEST 48 >=40 mg/dL No > 60 Oct 12 EROLS.I informa 2013 N HDL tion in Optimal 1:21 AM source \.br\40 data - 60 Accepta ble\.br \ < 40 Low Free T4 Observa Value Referen Units Interpr Notes Date tion ce etation Range Thyroxi 1.42 0.93 - ng/dL No No Nov 01 ne (T4) 1.70 informa informa 2013 free tion in tion in 7:26 PM [Mass/v source source olume] data data in Serum or Plasma TSH Observa Value Referen Units Interpr Notes Date tion ce etation Range Thyrotr 2.540 0.270 - mcIU/mL No No Nov 01 opin 4.200 informa informa 2013 [Units/ tion in tion in 7:26 PM volume] source source in data data Serum or Plasma Hemogram Observa Value Referen Units Interpr Notes Date tion ce etation Range LEUKOCY 6.7 4.0 - x10(3)/ No No Nov 01 GRETA 11.0 mcL informa informa 2013 tion in tion in 4:50 PM source source data data Erythro 4.95 4.30 - x10(6)/ No No Nov 01 cytes 5.81 mcL informa informa 2013 [#/volu tion in tion in 4:50 PM me] in source source Blood data data by Automat ed count Hemoglo 14.8 13.5 - gm/dL No Nov 01 bin 17.1 informa informa 2013 [Mass/v tion in tion in 4:50 PM olume] source source in data data Blood Hematoc 43.9 38.9 - % No No Nov 01 rit 51.6 informa informa 2013 [Volume tion in tion in 4:50 PM source source Fractio data data n] of Blood by Automat ed count Erythro 88.5 82.5 - fL No No Nov 01 cyte 99.8 informa informa 2013 mean tion in tion in 4:50 PM corpusc source source ular data data volume [Entiti c volume] by Automat ed count Erythro 29.8 27.0 - pg No No Nov 01 cyte 34.3 informa informa 2013 mean tion in tion in 4:50 PM corpusc source source ular data data hemoglo bin [Entiti c mass] by Automat ed count Erythro 33.7 32.1 - gm/dL No No Nov 01 cyte 35.3 informa informa 2013 mean tion in tion in 4:50 PM corpusc source source ular data data hemoglo bin concent ration [Mass/v olume] by Automat ed count Erythro 13.4 11.5 - % No No Nov 01 cyte 15.0 informa informa 2013 distrib tion in tion in 4:50 PM ution source source width data data [Ratio] by Automat ed count Platele 196 144 - x10(3)/ No No Nov 01 ts 423 mcL informa informa 2013 [#/volu tion in tion in 4:50 PM me] in source source Blood data data by Automat ed count Platele 8.7 6.8 - fL No No Nov 01 t mean 10.8 informa informa 2013 volume tion in tion in 4:50 PM [Entiti source source c data data volume] in Blood by Automat ed count Vit D 25-OH Observa Value Referen Units Interpr Notes Date tion ce etation Range Vitamin 46.5 30.0 - ng/mL No INTERPR Aug 02 D-25 120.0 informa ETIVE 2013 OH tion in INFORMA 10:38 source TION: AM data Vitamin D, 25-Hydr oxy\.br \\.br\< 20 ng/mL Deficie ncy\.br \20 - 29 ng/mL Insuffi ciency\ .br\30 - 80 ng/mL Optimum Level\. br\>120 ng/mL Possibl e Toxicit y\.br\\ .br\NOT E: For infants and childre n up to 17 years of age, the optimum level is >=20 ng/mL. This assay accurat melissa quantif ies the sum of vitamin D3, 25-Hydr oxy and vitamin D2, 25-Hydr oxy. Mg Observa Value Referen Units Interpr Notes Date tion ce etation Range Magnesi 1.9 1.6 - mg/dL No No Aug 01 um 2.2 informa informa 2012 [Moles/ tion in tion in 6:12 PM volume] source source in data data Serum or Plasma Lipid Scr Observa Value Referen Units Interpr Notes Date tion ce etation Range Cholest 150 <=200 mg/dL No < 200 Aug 01 dulce informa 2012 [Percen tion in 6:12 PM tile] source Desirab data le\.br\ 200 - 239 Borderl ine High\.b r\>= 240 High TRIGLYC 91 <=150 mg/dL No < 150 Aug 01 ERIDES. informa 2012 TOTAL tion in Normal\ 6:12 PM source .br\150 data - 199 Borderl ine High\.b r\200 - 499 High\.b r\ >= 500 Very High CHOLEST 43 >=40 mg/dL No > 60 Aug 01 EROLS.I inform2012 N HDL tion in Optimal 6:12 PM source \.br\40 data - 60 Accepta ble\.br \ < 40 Low Cholest 89 <=100 mg/dL No < 100 Aug 01 dulce in informa 2012 LDL tion in 6:12 PM [Mass/v source Optimal olume] data \.br\10 in 0 - 129 Serum or Near or Plasma above by optimal calcula \.br\13 tion 0 - 159 Borderl ine High\.b r\160 - 189 High\.b r\ >= 190 Very High Testost Observa Value Referen Units Interpr Notes Date tion ce etation Range Testost 409 300 - ng/dL No Aug 01 erone 890 informa Note: 2012 [Mass/v tion in Referen 5:58 PM olume] source ce in data range Serum based or on 8:00 Plasma AM standar d. Glyco Observa Value Referen Units Interpr Notes Date tion ce etation Range Hemoglo 8.8 <=7.0 % High Initial Aug 012012 A1c/Hem Diagnos 5:25 PM oglobin tic .total Criteri in a\.br\< Blood 5.7 % Normal\ .br\5.7 - 6.4 % At risk for diabete s mellitu s\.br\> = 6.5 % Consist ent with diabete s mellitu s\.br\\ .br\Earnestine betes monitor ing\.br \Target Value (ADA recomme nded): < 7 % Free T4 Observa Value Referen Units Interpr Notes Date tion ce etation Range Thyroxi 1.15 0.70 - ng/dL No No Aug 01 ne (T4) 1.48 informa informa 2012 free tion in tion in 5:15 PM [Mass/v source source olume] data data in Serum or Plasma TSH Observa Value Referen Units Interpr Notes Date tion ce etation Range Thyrotr 2.1181 0.3500 mcIU/mL No Aug 01 opin - informa informa 2012 [Units/ 4.9400 tion in tion in 5:15 PM volume] source source in data data Serum or Plasma Auto Diff Observa Value Referen Units Interpr Notes Date tion ce etation Range Neutrop 68.9 No % No Aug 01 hils informa informa informa 2012 [#/volu tion in tion in tion in 4:33 PM me] in source source source Blood data data data by Automat ed count Lymphoc 21.4 No % No Aug 01 ytes informa informa informa 2012 [#/volu tion in tion in tion in 4:33 PM me] in source source source Blood data data data by Automat ed count Monocyt 6.1 No % No Aug 01 es informa informa informa 2012 [#/volu tion in tion in tion in 4:33 PM me] in source source source Blood data data data by Automat ed count Eos 3.1 No % No Aug 01 Percent informa informa informa 2012 tion in tion in tion in 4:33 PM source source source data data data Baso 0.5 No % No Aug 01 Percent informa informa informa 2012 tion in tion in tion in 4:33 PM source source source data data data Neutrop 4.8 1.8 - x10(3)/ No Aug 01 hils 7.7 mcL informa informa 2012 [#/volu tion in tion in 4:33 PM me] in source source Blood data data Lymphoc 1.5 0.6 - x10(3)/ No Aug 01 ytes 4.8 mcL informa informa 2012 [#/volu tion in tion in 4:33 PM me] in source source Blood data data Monocyt 0.4 0.0 - x10(3)/ No Aug 01 es 1.3 mcL informa informa 2012 [#/volu tion in tion in 4:33 PM me] in source source Blood data data Eosinop 0.2 0.0 - x10(3)/ No Aug 01 hils 0.5 mcL informa informa 2012 [#/volu tion in tion in 4:33 PM me] in source source Blood data data Basophi 0.0 0.0 - x10(3)/ No Aug 01 ls 0.2 mcL informa informa 2012 [#/volu tion in tion in 4:33 PM me] in source source Blood data data CBC Observa Value Referen Units Interpr Notes Date tion ce etation Range LEUKOCY 6.9 4.0 - x10(3)/ No Aug 01 GRETA 11.0 mcL informa informa 2012 tion in tion in 4:33 PM source source data data Erythro 4.70 4.30 - x10(6)/ No Aug 01 cytes 5.81 mcL informa informa 2012 [#/volu tion in tion in 4:33 PM me] in source source Blood data data by Automat ed count Hemoglo 13.7 13.5 - gm/dL No Aug 01 bin 17.1 informa informa 2012 [Mass/v tion in tion in 4:33 PM olume] source source in data data Blood Hematoc 41.6 38.9 - % No Aug 01 rit 51.6 informa informa 2012 [Volume tion in tion in 4:33 PM source source Fractio data data n] of Blood by Automat ed count Erythro 88.6 82.5 - fL No Aug 01 cyte 99.8 informa informa 2012 mean tion in tion in 4:33 PM corpusc source source ular data data volume [Entiti c volume] by Automat ed count Erythro 29.1 27.0 - pg No Aug 01 cyte 34.3 informa informa 2013 mean tion in tion in 4:33 PM corpusc source source ular data data hemoglo bin [Entiti c mass] by Automat ed count Erythro 32.9 32.1 - gm/dL No Aug 01 cyte 35.3 informa informa 2012 mean tion in tion in 4:33 PM corpusc source source ular data data hemoglo bin concent ration [Mass/v olume] by Automat ed count Erythro 13.2 11.5 - % No Aug 01 cyte 15.0 informa informa 2012 distrib tion in tion in 4:33 PM ution source source width data data [Ratio] by Automat ed count Platele 167 144 - x10(3)/ No Aug 01 ts 423 mcL informa informa 2012 [#/volu tion in tion in 4:33 PM me] in source source Blood data data by Automat ed count Platele 8.8 6.8 - fL No Aug 01 t mean 10.8 informa informa 2012 volume tion in tion in 4:33 PM [Entiti source source c data data volume] in Blood Glyco Observa Value Referen Units Interpr Notes Date ti ce etation Range add on testing Hemoglo 9.5 <=7.0 % High Initial May 042012 A1c/Hem Diagnos 5:58 PM oglobin tic .total Criteri in a\.br\< Blood 5.7 % Normal\ .br\5.7 - 6.4 % At risk for diabete s mellitu s\.br\> = 6.5 % Consist ent with diabete s mellitu s\.br\\ .br\Earnestine betes monitor ing\.br \Target Value (ADA recomme nded): < 7 %\.br\ Vit D 25-OH Observa Value Referen Units Interpr Notes Date ti ce etation Range Vitamin 53.2 30.0 - ng/mL No INTERPR May 04 D-25 120.0 informa ETIVE 2013 OH tion in INFORMA 10:07 source TION: AM data Vitamin D, 25-Hydr oxy\.br \\.br\< 20 ng/mL Deficie ncy\.br \20 - 29 ng/mL Insuffi ciency\ .br\30 - 80 ng/mL Optimum Level\. br\>120 ng/mL Possibl e Toxicit y\.br\\ .br\NOT E: For infants and childre n up to 17 years of age, the optimum level is >=20 ng/mL. This assay accurat melissa quantif ies the sum of vitamin D3, 25-Hydr oxy and vitamin D2, 25-Hydr oxy.\.b r\ PSA Screen Observa Value Referen Units Interpr Notes Date tion ce etation Range Prostat 0.32 No ng/mL No 2008May 04 e informa informa AUA 2012 specifi tion in tion in Best 7:16 AM c Ag source source Practic [Mass/v data data e olume] Stateme in nt Serum Guideli or paul-Age Plasma Adjuste d Referen ce Interva ls:\.br \\.br\A ge Range Whites \. br\ Lesa ns Lesa ns\.br\ __\.br\ \.br\40 -49 years 0-2.5 ng/mL 0-2.0 ng/mL 0-2.0 ng/mL\. br\\.br \50-59 years 0-3.5 ng/mL 0-4.0 ng/mL 0-3.0 ng/mL\. br\\.br \60-69 years 0-4.5 ng/mL 0-4.5 ng/mL 0-4.0 ng/mL\. br\\.br \70-79 years 0-6.5 ng/mL 0-5.5 ng/mL 0-5.0 ng/mL\. br\\.br \\.br\[facility] uses the [employer] Total PSA assay, which is approve d as an aid in detecti ng prostat e cancer when used in conjunc tion with digital rectal exam in men 50 years or older and also as an adjunct louise test to aid in the managem ent of prostat e cancer patient s. Prostat ic biopsy is require d for the diagnos is of cancer. Values obtaine d with differe nt assay methods should not be used interch angeabl y. Conside r the above as guideli paul only. The risk of prostat e cancer is a continu um across a range of PSA levels, with increas ing risk as the PSA increas es. Testost Observa Value Referen Units Interpr Notes Date tion ce etation Range Testost 526 300 - ng/dL No May 03 erone 890 informa Note: 2012 Lvl tion in Referen 10:05 source ce PM data range based on 8:00 AM standar d. TSH Observa Value Referen Units Interpr Notes Date tion ce etation Range Thyrotr 1.490 0.300 - mcIU/mL No No May 03 opin 5.000 informa informa 2012 [Units/ tion in tion in 10:03 volume] source source PM in data data Serum or Plasma Free T4 Observa Value Referen Units Interpr Notes Date tion ce etation Range Thyroxi 1.4 0.8 - ng/dL No No May 03 ne (T4) 2.0 informa informa 2012 free tion in tion in 9:49 PM [Mass/v source source olume] data data in Serum or Plasma Lipid Scr Observa Value Referen Units Interpr Notes Date tion ce etation Range Cholest 167 <=200 mg/dL No < 200 May 03 dulce informa 2012 [Percen tion in 9:32 PM tile] source Desirab data le\.br\ 200 - 239 Borderl ine High\.b r\>= 240 High\.b r\\.br\ TRIGLYC 81 <=150 mg/dL No < 150 May 03 ERIDES. informa 2012 TOTAL tion in Normal\ 9:32 PM source .br\150 data - 199 Borderl ine High\.b r\200 - 499 High\.b r\ >= 500 Very High\.b r\ CHOLEST 49 >=40 mg/dL No > 60 May 03 EROLS.I informa 2012 N HDL tion in Optimal 9:32 PM source \.br\40 data - 60 Accepta ble\.br \ < 40 Low\.br \ LDL 102 <=100 mg/dL High < 100 May 03 Calcula 2013 kailey 9:32 PM Optimal \.br\10 0 - 129 Near or above optimal \.br\13 0 - 159 Borderl ine High\.b r\160 - 189 High\.b r\ >= 190 Very High\.b r\\.br\ Hemogram Observa Value Referen Units Interpr Notes Date tion ce etation Range LEUKOCY 6.8 4.0 - x10(3)/ No No May 03 GRETA 11.0 mcL informa informa 2013 tion in tion in 9:31 PM source source data data Erythro 4.70 4.30 - x10(6)/ No May 03 cytes 5.81 mcL informa informa 2012 [#/volu tion in tion in 9:31 PM me] in source source Blood data data by Automat ed count Hemoglo 14.4 13.5 - gm/dL No May 03 bin 17.1 informa informa 2012 [Mass/v tion in tion in 9:31 PM olume] source source in data data Blood Hematoc 42.2 38.9 - % No May 03 rit 51.6 informa informa 2012 [Volume tion in tion in 9:31 PM source source Fractio data data n] of Blood by Automat ed count Erythro 89.7 82.5 - fL No May 03 cyte 99.8 informa informa 2013 mean tion in tion in 9:31 PM corpusc source source ular data data volume [Entiti c volume] by Automat ed count Erythro 30.6 27.0 - pg No May 03 cyte 34.3 informa informa 2013 mean tion in tion in 9:31 PM corpusc source source ular data data hemoglo bin [Entiti c mass] by Automat ed count Erythro 34.1 32.1 - gm/dL No May 03 cyte 35.3 informa informa 2013 mean tion in tion in 9:31 PM corpusc source source ular data data hemoglo bin concent ration [Mass/v olume] by Automat ed count Erythro 14.0 11.5 - % No May 03 cyte 15.0 informa informa 2013 distrib tion in tion in 9:31 PM ution source source width data data [Ratio] by Automat ed count Platele 206 144 - x10(3)/ No No May 03 ts 423 mcL informa informa 2012 [#/volu tion in tion in 9:31 PM me] in source source Blood data data by Automat ed count MPV 8.7 6.8 - fL No No May 03 10.8 informa informa 2012 tion in tion in 9:31 PM source source data data MRI LUMBAR SPINE WO CONTRAST Observa Value Referen Units Interpr Notes Date tion ce etation Range TEXT MRI No No No No Jul 15 DIAGNOS LUMBOSA informa informa informa informa 2011 IS CRAL tion in tion in tion in tion in 1:02 PM BATTERY SPINE source source source source data data data data 012:HIS TORY: Chronic low back pain. Right hip pain.De generat louise disc disease noted at L5-S1. Disc space narrowi ng anddesi [facility]cation [facility] [place] [facility] There is loss of T2 signal. There appears to be a laminec tomydef ect at this level.T here is no recurre nt disc protrus ion, canal stenosi s or foramin alnarro wing.At L4-L5, there is an annular tear in the right foramen . There is ashallo w right foramin aldisc protrus ion at L4-L5. There is mild narrowi ng of the right foramen .L3-L4, L2-L3 and L1-L2 levels are normal. Marrow signal is normal. Conusis normal. IMPRESS ION: Annular tear at L4-L5 with shallow right foramin al discpro trusion . Degener ativech roxana at L5-S1 where there has been previou s laminec renato. No canalst enosis or high-gr adefora kamila narrowi ng. Normal alignme nt.
--- OUTSIDE RECORDS SUMMARY | 2017-04-04 17:28 | External Medical Summary Rpt ---
[...] data data data examina tion at the [facility] are Vascula r Laborat ory.\.b r\The complet e report can be found in the [facility] ([employer]) [employer] Medical Record of the patient [...] data data data examina tion at the [facility] are Vascula r Laborat ory.\.b r\The complet e report can be found in the [facility] [employer]) [employer] Medical Record of the patient [...] data data data examina tion at the [facility] are Vascula r Laborat ory.\.b r\The complet e report can be found in the [facility] ([facility]) [employer] Medical Record of the patient [...] in 9:24 PM source source data data [place]# 0.6 0.0 - x10(3)/ No No Feb [...] n\.br\\ .br\849 a.m., 5 Decembe r 14, [id number] \.br\\. br\Pain , 6.3 mCi technet ium [...] in 2:45 PM source source data data [place]# 0.5 0.0 - x10(3)/ No No Dec 3 1.3 mcL informa informa 2014 tion in tion in 2:45 PM source source data data Eos# 0.0 0.0 - x10(3)/ No No Dec 3 0.5 mcL informa informa 2013 tion in tion in 2:45 PM source source data data Baso# 0.0 0.0 - x10(3)/ No No Aug 23 0.2 [facility] informa informa 2013 tion in tion in 2:45 PM source source data data CBC Observa Value Referen Units Interpr Notes Date tion ce etation Range LEUKOCY 16.6 4.0 - x10(3)/ High No Aug 23 GRETA 11.0 [facility] inform2013 tion in 2:45 PM source data Erythro 5.17 4.30 - x10(6)/ No No Aug 23 cytes 5.81 [facility] informa informa 2013 [#/volu tion in tion [...] .br\GAR Y Arnol BOOKER\ .br\[address], [place] [address]\.br \ (phone) \.br\([phone] (fax)\. br\\.br \\.br\A SA Class: P2 [...] \pulse oximetr y, blood pressur e, and medical transcription radiology ing was done. Supplem ental\. br\oxyg en [...] in 8:33 PM source source data data [place]# 0.4 0.0 - x10(3)/ No No Apr [...] - x10(3)/ No Apr 03 GRETA 11.0 [facility] informa informa 2013 tion in tion in 8:33 PM source source data data Erythro 4.64 4.30 - x10(6)/ No Apr 03 cytes 5.81 [facility] informa informa 2013 [#/volu tion in tion [...] 0-5.5 ng/mL 0-5.0 ng/mL\. br\\.br \\.br\[facility] uses the [employer] [...] space narrowi ng anddesi [facility]cation [facility] There is loss of T2 signal. [...]
--- NOTE | 2017-04-04 17:32 | Urgent Treatment Center Report ---
History of Present Issue Date/Time Seen by Provider 04/04/17 1731 Visit Reason Pt arrived:Wheelchair Presenting Problem:PT C/O BILATERAL WRIST PAIN FOLLOWING A FALL IN [place] A HOUR AGO Location if Accident: Onset of symptoms date/time:/ or onset unknown for:MEDICAL HX UNKNOWN Have you (or family members/close friends) recently traveled outside the [place]? N If Yes, where/when: Have you had exposure to infectious disease within the past month? TB? Other? Specify: Here w/ unknown family member c/o bilateral wrist pain s/p tripping in grass and falling forward to ground approx one hour before arriving. Hand stretched out in front of his to brace fall. Immediate bilateral wrist pain. Has since taken lortab and morphine for the pain. Pain worse with wrist ROM. Denies pain in fingers, hand, FA, elbows, upper arms, shoulders. "Only my wrists". Hx of injury to hands in the past. Previous right radial and metacarpal fracture. According to family, appointment delayed and slight deformity in bone due to it now. Source patient, family Exam Limitations no limitations ALLERGIES Coded Allergies: levofloxacin (From LEVAQUIN) (09/03/15) Home Medications Active Scripts Cyclobenzaprine Hcl (Flexeril) 10 MG PO TID #15 Prov: 06/24/10 ONDANSETRON HCL (Zofran 4MG Tab) 4 MG PO Q6HP PRN NAUSEA AND VOMITING #28 TAB Prov: 09/03/15 Reported Medications Gabapentin (Gralise) 600 MG PO DAILY #90 MORPHINE SULFATE SR/ER (Morphine Sulfate ER) 30 MG PO Q12 #60 HYDROCODONE/ACETAMINOPHEN (Hydrocodon-Acetamin 7.5-325/15) 10 ML PO Q4HP PRN PAIN #120 ONDANSETRON HCL (Ondansetron HCl) 8 MG PO Q4H PRN VOMITING #30 Lisinopril 5 MG PO DAILY #90 INSULIN GLARGINE (Lantus 3ML Solostar Pen) 36 UNITS SC QHS Insulin Aspart, Recombinant (Novolog Flexpen) 1 UNITS SC AC History Medical History General CAD? No Angina: No FL: No Hypertension? No Hyperlipidemia? No CHF? No DVT? No PE? No COPD? No Asthma? No Anemia? No GERD? No Gastric ulcers? No GI Bleed? No Hernia? No Thyroid Problems? No Hypothyroidism? No CVA? No Seizures? No Diabetes? Yes Insulin Dependent: Yes Insulin Pump: No Home FSBS? Yes Renal Insuffiency? No UTI? No Stones? No BPH? No GB Disease: No Nephritic Syndrome? No Asplenia? No Hepatitis? No Sickle Cell Disease? No Arthritis? No Migraines? No Cataracts? No Glaucoma? No MRSA? No HIV? No TB? No Anxiety? No Depression? No Cancer? Yes Site: TESTICULAR More? No Immunization HX DT/Tetanus 1-4 YRS Surgical Hx Previous Surgery?Y Back Surgery TESTICLE REMOVED KNEE SURGERY-R SHOULDER -R HAND-R Family History Family HX Diabetes Yes CAD Yes Hypertension Yes Hyperlipidemia Yes Cancer Yes TB No Social History Smoking Hx Smoker: Current Every Day Smoker Tobacco: Yes Type Cigarettes Packs/day 1 1/2 - 2 Packs Alcohol Alcohol: No Review of Systems All Other Systems Reviewed and Negative Constitutional denies fever, denies malaise Musculoskeletal see HPI Skin denies change in color Psychiatric/Neurological denies numbness, denies tingling Physical Exam Vital Signs Vital Signs Date Time Temp Pulse Resp B/P Pulse O2 O2 Flow FiO2 Ox Delivery Rate 04/04 1758 98.5 63 22 87/45 98 04/04 1721 98.5 63 22 87/45 98 04/04 1708 98.5 63 22 /45 98 General Appearance no apparent distress, seated in wheelchair, drowsy (reporting due to pain medication) Respiratory Status No: respiratory distress. Cardiovascular no peripheral edema Peripheral Pulses Pulses normal Yes (radial) Extremities normal range of motion (cedric digits, elbows, shoulders), normal inspection (cedric hands,wrists,arms,elbows), limited range of motion (cedric wrists), tenderness generalized throughout bilateral wrist, no localized pain Neurologic no motor/sensory deficits, oriented x 3, drowsy, easily aroused Mental status normal mood/affect Skin intact, normal color, warm/dry Medical Decision Making LABS/Meds/Orders Pt receiving controlled substance in ED? No (only chronically) Results/Orders Orders Procedure Date/time Status STABILIZE JOINT 04/04 175 Active WRIST-3 VIEWS-RT 04/04 172 Active WRIST-3 VIEWS-LT 04/04 1723 Active XRAY/CT/US XRAY/CT/US XRAY wrist (bilateral) XR interpretation by reviewed by me (w/ Dr. Stewart) Xray Results no acute findings, old right 5th metacarpal fracture Departure Departure Time of Disposition 1753 Disposition DC Home or Self Care(routine) Clinical Impression Primary Impression: Left wrist sprain Qualifiers: Encounter type: initial encounter Qualified Code: S63.502A - Unspecified sprain of left wrist, initial encounter Secondary Impressions: Right wrist sprain Qualifiers: Encounter type: initial encounter Qualified Code: S63.501A - Unspecified sprain of right wrist, initial encounter Condition STABLE Referrals NO REFERRAL Follow-up with Dr. Napier at [place], your primary care, for new, worsening or persistant symptoms. Would expect improvement over the next week. May require a referral to ortho or hand specialist so follow up important. Patient Instructions DI for Wrist Sprain, How To Perform RICE (Rest, Ice, Compress, Elevate) Additional Instructions * Rest * ice 15-20 mins 3-4 times a day * wrist splints for support and swelling unless in shower. Be sure not too tight but not too loose either * Elevate as discussed as much as possible to help reduce swelling and therefore , pain * Ibuprofen every 6 hours as needed for pain and inflammation as long as your primary care provider has told you it is ok. I understand you are prescribed narcotics. These too should help with the pain but not the inflammation. Follow up IMMEDIATELY for new or worsening symptoms OR no noticeable improvement over the next 3-5 days. Discharge Counseling Counseled pt/family regarding diagnosis, test results, medications/RX, home care, follow up needs at 2007
[2017-04-04 17:58] VITALS: BP 87/45
--- NOTE | 2017-04-05 08:15 | RADIOLOGY REPORT PS360 ---
WRIST-3 VIEWS-LT COMPARISON: Right wrist same date HISTORY: Left wrist pain after a fall TECHNIQUE: AP lateral and oblique views FINDINGS: The distal radius and ulna appear intact and the carpal bones appear intact with no fracture. There is minor diffuse soft tissue swelling of the wrist. IMPRESSION: Negative for fracture
--- NOTE | 2017-04-05 08:15 | RADIOLOGY REPORT PS360 ---
WRIST-3 VIEWS-RT COMPARISON: Left wrist same date HISTORY: Right wrist pain after a fall TECHNIQUE: AP lateral and oblique views FINDINGS: The distal raises and ulna appear intact. The carpal bones appear in tact. The soft tissues are normal. IMPRESSION: Negative right wrist
== END 2017-04-04 17:58 | disposition home or self-care (01) ==
LOC: ER 17:03 → UTC 17:16
DX: S63.501A Unspecified sprain of right wrist, initial encounter (principal); S63.502A Unspecified sprain of left wrist, initial encounter
CPT/HCPCS: G0463

== ENCOUNTER 2017-08-23 11:16 | Emergency (ER) | payer MEDICARE ==
[~2017-08-23] VITALS: Ht 193 cm; Wt 93.0 kg
--- OUTSIDE RECORDS SUMMARY | 2017-08-23 11:23 | External Medical Summary Rpt | CCD ---
Author Author [employer] Organization [employer] Address Unknown Phone Unavailable Purpose Continuity of Care Document - through 2016
--- OUTSIDE RECORDS SUMMARY | 2017-08-23 11:23 | External Medical Summary Rpt | CCD ---
Author Author , DAMION BRUNO Address Unknown Phone [email or web address] Care Team Providers Care Lens Assistant Name Role Phone [facility], Unavailable [facility]available [facility] Unavailable Unavailable [facility], Unavailable Unavailable [facility] STEVEN B, Unavailable Unavailable [facility], Unavailable Unavailable [facility] Purpose Continuity of Care Document - 11-09-2007 through 2016 Problems Code Diagnosis DOS Provider Status Z72.0 Tobacco use 08-27-2016 E10.42 Type 1 08-27-2016 diabetes mellitus with diabetic polyneuropa thy E10.29 Type 1 03-05-2016 diabetes mellitus with other diabetic kidney complicatio n R80.9 Proteinuria 03-05-2016 , unspecified Z79.4 half-way 03-05-2016 (current) use of insulin Z79.899 Other long 03-05-2016 term (current) drug therapy G99.0 Autonomic 06-20-2015 neuropathy in diseases classified elsewhere I10 Essential 08-24-2014 (primary) hypertensio n E78.00 Pure 08-24-2014 hypercholes terolemia, unspecified 33921 DIAB W/O 01-11-2008 [facility] TYPE I [facility]ICAL [JUV] NOT GROUP STATED UNCNTRL 2720 PURE 01-11-2008 [facility] TEROLEMIA [facility] 3559 MONONEURITI 01-11-2008 [facility] S [facility] UNSPECIFIED GROUP SITE 77482 IMPOTENCE 01-11-2008 [facility] 4660 ACUTE 12-15-2007 [facility] 7962 ELEVATED BP 12-15-2007 [facility] WITHOUT DX GROUP HYPERTENSIO N 01789 DIAB 12-13-2007 [facility] MANIFESTS TYPE II/UNS TYPE UNCNTRL 2501 DIABETES 11-09-2007 CLINIC WITH PHARMACY KETOACIDOSI S E10.40 Type 1 diabetes mellitus with diabetic neuropathy, unspecified E10.41 Type 1 diabetes mellitus with diabetic mononeuropa thy E10.649 Type 1 diabetes mellitus with hypoglycemi a without coma E11.51 Type 2 diabetes mellitus with diabetic peripheral angiopathy without gangrene E78.0 Pure hypercholes terolemia H90.3 Sensorineur al hearing loss, bilateral I73.9 Peripheral vascular disease, unspecified I77.1 Stricture of artery K21.9 Gastro-esop hageal reflux disease without esophagitis K31.84 Gastropares is M54.16 Radiculopat hy, lumbar region N52.9 Male erectile dysfunction , unspecified R07.89 Other chest pain Z71.6 Tobacco abuse counseling Z91.19 Patient's noncomplian ce with other medical treatment and regimen Medications Na ND Rx Da Fi Fi Am Da Di Ph RX Ph St me C No te ll ll ou ys ag ar # ys at rm s nt no ma ic us Or Da si cy ia de te s n re d AL 59 04 05 00 60 30 CL 16 No Ac DC 76 -2 -0 .0 IN 92 t ti AZ 23 2- 8- 00 IC 36 Av ve OL 72 20 20 ai AM 10 08 08 PH la 1 4 AR bl MA e MG CY TA BL ET AL 59 03 04 00 60 30 CL 16 No Ac DC 76 -1 -1 .0 IN 72 t ti AZ 23 9- 7- 00 IC 53 Av ve OL 72 20 20 ai AM 10 08 08 PH la 1 4 AR bl MA e MG CY TA BL ET AL 59 02 03 00 60 30 CL 16 No Ac DC 76 -1 -2 .0 IN 52 t ti AZ 23 9- 6- 00 IC 05 Av ve OL 72 20 20 ai AM 10 08 08 PH la 1 4 AR bl MA e MG CY TA BL ET LO 37 11 03 02 30 30 CL 15 No Ac RA 20 -2 -2 .0 IN 93 t ti TA 50 0- 6- 00 IC 78 Av ve DI 34 20 20 ai NE 67 07 08 PH la 2 AR bl 10 MA e CY MG TA BL ET AL 59 01 03 00 60 30 CL 16 No Ac DC 76 -2 -2 .0 IN 30 t ti AZ 23 1- 5- 00 IC 59 Av ve OL 72 20 20 ai AM 10 08 08 PH la 1 4 AR bl MA e MG CY TA BL ET
--- OUTSIDE RECORDS SUMMARY | 2017-08-23 11:23 | External Medical Summary Rpt | CCD ---
Author Author , DAMION BRUNO Address Unknown Phone [email or web address] Care Team Providers Care Molding Utility Worker Name Role Phone [facility], Unavailable Unavailable [...] n R80.9 Proteinuria 03-05-2016 , unspecified Z79.4 nursing home 03-05-2016 (current) use of insulin Z79.899 Other long 03-05-2016 term (current) drug therapy G99.0 Autonomic 06-20-2015 neuropathy in diseases classified elsewhere I10 Essential 08-24-2014 (primary) hypertensio n E78.00 Pure 08-24-2014 hypercholes terolemia, unspecified 88231 DIAB W/O 01-11-2008 [facility] TYPE I MEDICAL [JUV] NOT GROUP STATED UNCNTRL 2720 PURE 01-11-2008 [facility]EROLE[facility] 3559 MONONEURITI 01-11-2008 [facility] UNSPECIFIED GROUP SITE 13742 IMPOTENCE 01-11-2008 [facility] 4660 ACUTE 12-15-2007 [facility] 7962 ELEVATED BP 12-15-2007 [facility] WITHOUT DX GROUP HYPERTENSIO N 08378 DIAB 12-13-2007 [facility] TYPE II/UNS [...] 00 60 30 CL 16 No Ac CA 76 -2 -0 .0 IN 92 t ti AZ 23 2- 8- 00 IC 36 Av ve OL 72 20 20 ai AM 10 08 08 PH la 1 4 AR bl MA e MG CY TA BL ET AL 59 03 04 00 60 30 CL 16 No Ac CA 76 -1 -1 .0 IN 72 t ti AZ 23 9- 7- 00 IC 53 Av ve OL 72 20 20 ai AM 10 08 08 PH la 1 4 AR bl MA e MG CY TA BL ET AL 59 02 03 00 60 30 CL 16 No Ac CA 76 -1 -2 .0 IN 52 t [...] 00 60 30 CL 16 No Ac CA 76 -2 -2 .0 IN 30 t ti AZ 23 1- 5- 00 IC 59 Av ve OL 72 20 20 ai AM 10 08 08 PH la 1 4 AR bl MA e MG CY TA BL ET
--- OUTSIDE RECORDS SUMMARY | 2017-08-23 11:24 | External Medical Summary Rpt | CCD ---
Author Author , DAMION BRUNO Address Unknown Phone [email or web address] Support Name Relationship Address Phone SUDHAKAR, Next [...]
--- OUTSIDE RECORDS SUMMARY | 2017-08-23 11:24 | External Medical Summary Rpt | CCD ---
Author Author , DAMION BRUNO Address Unknown Phone [email or web address] Support Name Relationship Address Phone SUDHAKAR, Next [...]
--- OUTSIDE RECORDS SUMMARY | 2017-08-23 11:26 | External Medical Summary Rpt ---
Author Author [facility] Vanessa, [employer] Organization [employer] Address Unknown Phone Unavailable Results XR CHEST PA AND LATERAL Observa Value Referen Units Interpr Notes Date ti ce etation Range TWO-VIE No No No No Jun 25 W informa informa informa informa 2016 CHEST, tion in tion in tion in tion in 3:22 PM 06/25/20 source source source source 17 at data data data data 1517\.b r\\.br\ HISTORY : R07.89- Other chest pain-IC D-10-CM \.br\\. br\FIND INGS:\. br\\.br \Compar darlene 08/24/20 14.\.br \\.br\H eart size is stable and normal. \.br\\. br\1.5 cm right midlung nodule unchang ed consist ent with a granulo ma. Lungs\. br\othe rwise clear.\ .br\\.b r\IMPRE SSION:\ .br\No acute disease .\.br\ Glyco Observa Value Referen Units Interpr Notes Date ti ce etation Range Hemoglo 9.0 <=7.0 % High Referen Mar 182016 A1c/Hem Interva 3:23 PM fady oquendo for .total Hgb in A1c\.br Blood \\.br\H gb A1c Interpr etation \.br\-- ------- -- ------- ------- --\.br\ \.br\ < 6.0 Non-Earnestine betic Range\. br\6.0 - 7.0 ADA Therape utic Target\ .br\ > 7.0 Action suggest ed [facility] US LOWER EXTREMITY ARTERIAL DUPLEX COMPLETE Observa Value Referen Units Interpr Notes Date ce etation Range This No No No No Mar 13 patient informa informa informa informa 2016 tion in tion in tion in tion in 3:28 PM receive source source source source d an data data data data examina tion at the [facility] are [facility].\.b r\The complet e report can be found in the [facility] ([facility]) [facility] Medical Record of the patient . VA US LOWER EXTREMITY ARTERIAL PHYSIOLOGICAL W DIGITS Observa Value Referen Units Interpr Notes Date tion ce etation Range This No No No No Danish 23 patient informa informa informa informa 2017 tion in tion in tion in tion in 2:55 PM receive source source source source d an data data data data examina tion at the [facility] are Vascula r Laborat or[facility].\.b r\The complet e report can be found in the [facility]) [facility] Medical Record of the patient . MRI LUMBAR SPINE WO CONTRAST Observa Value Referen Units Interpr Notes Date tion ce etation Range MRI No No No No Jan 15 LUMBAR informa informa informa informa 2017 SPINE [...] data data data examina tion at the [facility] are [facility] r [facility] or[facility].\.b r\The complet e report can be found in the [facility] ([facility]) Electro kia Medical Record of the [...] mmol/L Low No Oct 2 145 informa 2014 tion in 4:14 PM source data Potassi 4.9 3.5 - mmol/L No No Oct 2 um 5.0 informa informa 2014 [Moles/ tion in tion in 4:14 PM volume] source source in data data Serum or Plasma Chlorid 97 98 - mmol/L Low No Oct 2 e 107 informa 2014 tion in 4:14 PM source data Carbon 28 22 - 29 mmol/L No No Oct 2 dioxide informa informa 2014 , total tion in tion in 4:14 PM source source [Moles/ data data volume] in Serum or Plasma Anion 10 7 - 16 mmol/L No No Oct 2 Gap informa informa 2015 tion in tion in 4:14 PM source source data data CALCIUM 9.4 8.6 - mg/dL No No Oct 2 .TOTAL 10.2 informa informa 2015 tion in tion in 4:14 PM source source data data Glucose 378 74 - mg/dL High No Oct 2 Lvl 100 informa 2014 tion in 4:14 PM source data BUN 11 6 - 20 mg/dL No No Oct 2 informa informa 2015 tion in tion in 4:14 PM source source data data Creatin 0.79 0.67 - mg/dL No No Oct 2 ine 1.30 informa informa 2015 tion in tion in 4:14 PM source source data data Glyco Observa Value Referen Units Interpr Notes Date tion ce etation Range Hemoglo 9.7 <=7.0 % High Initial Nov 182014 A1c/Hem Diagnos 9:35 AM oglobin tic .total [...] Range Neutrop 60.6 No % No No Nov 17 hils informa informa informa 2014 [#/volu tion in tion in tion in 9:24 PM me] in source source source Blood data data data by Automat ed count Lymphoc 31.2 No % No No Nov 17 ytes informa informa informa 2014 [#/volu tion in tion in tion in 9:24 PM me] in source source source Blood data data data by Automat ed count Monocyt 7.0 No % No No Nov 17 es informa informa informa 2014 [#/volu tion in tion in tion in 9:24 PM me] in source source source Blood data data data by Automat ed count Eos 0.6 No % No No Nov 17 Percent informa informa informa 2015 tion in tion in tion in 9:24 PM source source source data data data Baso 0.6 No % No No Nov 17 Percent informa informa informa 2014 tion in tion in tion in 9:24 PM source source source data data data Neut# 5.5 1.8 - x10(3)/ No No Feb 27 7.7 mcL informa informa 2015 tion in tion in 9:24 PM source source data data Lymph# 2.8 0.6 - x10(3)/ No No Feb 27 4.8 mcL informa informa 2015 tion in tion in 9:24 PM source source data data [place]# 0.6 0.0 - x10(3)/ No No Feb [...] LEUKOCY 9.1 4.0 - x10(3)/ No No Feb 27 GRETA 11.0 mcL informa informa 2014 tion in tion in 9:24 PM source source data data Erythro 4.75 4.30 - x10(6)/ No No Feb 27 cytes 5.81 mcL informa informa 2014 [#/volu tion in tion in 9:24 PM me] in source source Blood data data by Automat ed count Hemoglo 14.4 13.5 - gm/dL No No b 27 bin 17.1 informa informa 2014 [Mass/v tion in tion in 9:24 PM olume] source source in data data Blood Hematoc 42.5 38.9 - % No No b rit 51.6 informa informa 2015 [Volume tion in tion in 9:24 PM source source Fractio data data n] of Blood by Automat ed count Erythro 89.5 82.5 - fL No No b cyte 99.8 informa informa 2015 mean tion [...] No No Nov 17 10.8 informa informa 2015 tion in tion in 9:24 PM source source data data Glu Bed Observa Value Referen Units Interpr Notes Date tion ce etation Range GLU BED 311 70 - mg/dL High No Aug 26 100 informa 2014 tion in 11:30 source AM data Glu [...] - mg/dL High No Aug 25 100 inform2013 tion in 9:00 PM source data Glu Bed Observa Value Referen Units Interpr Notes Date tion ce etation Range GLU BED 193 70 - mg/dL High No Aug 25 100 inform2013 tion in 5:36 PM source data Glu Bed Observa Value Referen Units Interpr Notes Date ti ce etation Range GLU BED 352 70 - mg/dL High No Aug 25 informa 2013 tion in 12:57 source PM data Glu Bed Observa Value Referen Units Interpr Notes Date ti ce etation Range GLU BED 392 70 - mg/dL High No Aug 25 inform2013 tion in 10:53 source AM data NM HEPATOBILIARY W GBEF Observa Value Referen Units Interpr Notes Date ti ce etation Range Biliary No No No No Aug 25 informa informa informa inform2013 drainag tion in ti in tion in tion in 9:40 AM e scan source source source source with data data data data gallbla dder ejectio n fractio n\.br\\ .br\849 a.m., 5 Decembe r 14, [id number] \.br\\. br\Pain , 6.3 mCi technet ium mebrofe eva, gallbla dder stimula tion with boost\. br\supp [...] UA Yellow No No No No Aug 24 Color informa informa informa informa 2013 tion [...] e informa l informa 2013 tion in tion [...] e informa l informa 2013 tion in tion in 4:02 PM source source data data UA 0.2 <=1 No No No Aug 24 Urobili mg/dl mg/dl informa informa informa 2014 nogen tion in tion in tion in 4:02 PM source source source data data data UA Negativ Negativ No No No Aug 24 Nitrite e e informa informa informa 2014 tion in tion in tion in 4:02 PM source source source data data data UA Leuk Negativ Negativ No No No Aug 24 Est e e informa informa informa 2013 tion in tion in tion in 4:02 PM source source source data data data UA Spec >=1.030 No No No Referen Aug 24 Grav informa informa informa ce 2014 tion in tion in tion in range 4:02 PM source source source valid data data data for random specime ns only. UA WBC 3-5 No /HPF No No Aug 24 informa informa informa 2014 tion in tion in tion in 4:02 [...] QUADRAN source source source source AM T Dec data data data data 2013 11:37:2 9 AM\.br\ \.br\HI STORY: -biliou s vomitin g, abdomin al pain.\. br\\.br \Compar e: Novembe r 2013\.b r\Study somewha t limited due [...] Date tion ce etation Range GLU BED 101 70 - mg/dL High No Aug 24 100 informa 2013 tion in 9:01 AM source data XR ACUTE ABDOMEN SUPINE ERECT AND OR DECUBITUS W 1 VW CHEST Observa Value Referen Units Interpr Notes Date tion ce etation Range Acute No No No [...] 91 70 - mg/dL No No Aug 4 100 informa informa 2013 tion in tion [...] Aug 24 100 informa 2013 tion in 4:44 AM source data XR [...] Date tion ce etation Range GLU BED 118 70 - mg/dL High No Dec 4 100 informa 2013 tion in 3:47 AM source data Mg [...] BED 80 70 - mg/dL No No Dec 100 informa informa 2013 tion in tion in 2:46 AM source source data data Glu Bed Observa Value Referen Units Interpr Notes Date tion ce etation Range GLU BED 68 70 - mg/dL Low No Dec 100 inform2013 tion in 2:21 AM source data Glu Bed Observa Value Referen Units Interpr Notes Date tion ce etation Range GLU BED 64 70 - mg/dL Low No Dec 4 100 inform2013 tion in 1:44 AM source data Glu Bed Observa Value Referen Units Interpr Notes Date tion ce etation Range GLU BED 114 70 - mg/dL High No Dec 4 100 informa 2013 tion in 12:35 source AM data Glu Bed Observa Value Referen Units Interpr Notes Date tion ce etation Range GLU BED 142 70 - mg/dL High No Dec 3 100 inform2013 tion in 11:34 source PM data Phos Observa Value Referen Units Interpr Notes Date tion ce etation Range Phospha 1.4 2.5 - mg/dL Low No Dec te 4.5 informa 2013 [Mass/v tion in [...] BED 259 70 - mg/dL High No Aug 23 100 informa 2013 tion in 9:41 PM source data Glu Bed Observa Value Referen Units Interpr Notes Date tion ce etation Range GLU BED 236 70 - mg/dL High No Aug 23 100 informa 2013 tion in 8:43 PM source data Glu Bed Observa Value Referen Units Interpr Notes Date tion ce etation Range GLU BED 339 70 - mg/dL High No Aug 23 100 informa 2013 tion in 7:14 PM source data Glu Bed Observa Value Referen Units Interpr Notes Date tion ce etation Range GLU BED 334 70 - mg/dL High No Aug 23 100 informa 2013 tion in 6:19 PM source data Glu Bed Observa Value Referen Units Interpr Notes Date tion ce etation Range GLU BED 370 70 - mg/dL High No Aug 23 100 informa 2013 tion in 5:16 PM source data Acetone Observa Value Referen Units Interpr Notes Date tion ce etation Range Acetone Moderat No No Abnorma No Aug 23 e informa informa l informa 2013 tion in tion in tion in 4:59 PM source source source data data data VBG Observa Value Referen Units Interpr Notes Date tion ce etation Range pH Homer 7.32 7.32 [...] informa 2014 Homer tion in tion in tion in 4:51 PM source source source data data data HCO3 14 No mmol/L No No Aug 3 Homer informa informa informa 2013 tion in tion in tion in 4:51 PM source source source data data data CO2 15 25 - 29 mmol/L Low No Dec 3 Totl informa 2013 Homer tion in 4:51 PM source data O2 Sat 98 No % No No Aug 3 Homer informa informa informa 2013 tion in tion in tion in 4:51 PM source source source data data data EK EKG 12 LEAD Observa Value Referen Units Interpr Notes Date tion ce etation Range Station No No No No Aug 3 chan ECG informa informa informa informa 2013 tion in tion in tion in tion in 2:45 PM Study\. source source source source br\St. data data data data Emiliano [facility] Co\.br\ Interpr etive Stateme nts\.br \Sinus rhythm\ .br\rSr '(V1) - probabl e normal variant \.br\No rmal ECG\.br \No previou s ECG availab le for compari son\.br \Electr onicall y Signed On 2014-08 22:08:2 8 EST by Florian Hylton MD Lipase Observa Value Referen Units Interpr Notes Date tion ce etation Range Lipase 5 13 - 60 IU/L Low No Aug 3 Lvl informa 2013 tion in 3:04 PM source data Auto Diff Observa Value Referen Units Interpr Notes Date tion ce etation Range Neutrop 91.9 No % No No Aug 3 hils informa informa informa 2013 [#/volu [...] count Monocyt 3.3 No % No No Aug 3 es informa informa informa 2013 [#/volu [...] No Dec 3 Percent informa informa informa 2014 tion in tion in tion in 2:45 PM source source source data data data Neut# 15.3 1.8 - x10(3)/ High No Dec 3 7.7 mcL informa 2013 tion in 2:45 PM source data Lymph# 0.7 0.6 - x10(3)/ No No Dec 3 4.8 mcL informa informa 2014 tion in tion in 2:45 PM source source data data [place]# 0.5 0.0 - x10(3)/ No No Dec 3 1.3 mcL informa informa 2014 tion in tion in 2:45 PM source source data data Eos# 0.0 0.0 - x10(3)/ No No Dec 3 0.5 mcL informa informa 2013 tion in tion in 2:45 PM source source data data Baso# 0.0 0.0 - x10(3)/ No No Dec 3 0.2 mcL informa informa 2013 tion in tion in 2:45 PM source source data data CBC Observa Value Referen Units Interpr Notes Date tion ce etation Range LEUKOCY 16.6 4.0 - x10(3)/ High No Dec 3 GRETA 11.0 mcL informa 2013 tion in 2:45 PM source data Erythro 5.17 4.30 - x10(6)/ No No Dec 3 cytes 5.81 mcL informa informa 2013 [#/volu tion in tion in 2:45 PM me] in source source Blood data data by Automat ed count Hemoglo 15.2 13.5 - gm/dL No No Dec 3 bin 17.1 informa informa 2013 [Mass/v tion in tion in 2:45 PM olume] source source in data data Blood Hematoc 46.3 38.9 - % No No Dec 3 rit 51.6 informa informa 2013 [Volume tion in tion in 2:45 PM source source Fractio data data n] of Blood by Automat ed count Erythro 89.6 82.5 - fL No No Dec 3 cyte 99.8 informa informa 2013 mean tion [...] Erythro 32.9 32.1 - gm/dL No Aug 23 cyte 35.3 informa informa 2013 mean tion in tion in 2:45 PM corpusc source source ular data data hemoglo bin concent ration [Mass/v olume] by Automat ed count Erythro 13.4 11.5 - % No Aug 23 cyte 15.0 informa informa [...] count MPV 8.5 6.8 - fL No Aug 23 10.8 informa informa 2013 tion in tion in 2:45 PM source source data data US RIGHT UPPER QUADRANT Observa Value Referen Units Interpr Notes Date tion ce etation Range Right No No No No Aug 01 upper informa informa informa informa 2013 quadran [...] Colonos Colonos No No No No Jun 1 copy copy informa informa informa informa 2014 Report\ tion in tion in tion in [...] \\.br\\ .br\Ref erring Physici an(s):\ .br\[facility]\ .br\[address], [place] [address]\.br \ (phone) \.[phone] (fax)\. br\\.br \\.br\A SA Class: P2 - 014 01:19:1 2 PM Migue Anusion new\.br\ \.br\\. br\\.br \Admini stered Medicat ions: [place] [...] \pulse oximetr y, blood pressur e, and personnel monitor ing was done. Supplem ental\. br\oxyg [...] r / physici an\.br\ \.br\\. br\Path ology: Patholo gy was sent to lab, waiting for [...] count Lymphoc 22.5 No % No No Mar 14 ytes informa informa informa 2013 [#/volu tion in tion in tion in 8:33 PM me] in source source source Blood data data data by Automat ed count Monocyt 7.1 No % No No Mar 14 es informa informa informa 2013 [#/volu tion in tion in tion in 8:33 PM me] in source source source Blood data data data by Automat ed count Eos 2.5 No % No No Mar 14 Percent informa informa informa 2013 tion in tion in tion in 8:33 PM source source source data data data Baso 0.7 No % No No Mar 14 Percent informa informa informa 2013 tion in tion in tion in 8:33 PM source source source data data data Neut# 4.2 1.8 - x10(3)/ No No Mar 14 7.7 mcL informa informa 2013 tion in tion in 8:33 PM source source data data Lymph# 1.4 0.6 - x10(3)/ No No Mar 14 4.8 mcL informa informa 2014 tion in tion in 8:33 PM source source data data [place]# 0.4 0.0 - x10(3)/ No No Mar 14 1.3 mcL informa informa 2013 tion in tion in 8:33 PM source source data data Eos# 0.2 0.0 - x10(3)/ No No Mar 14 0.5 mcL informa informa 2013 tion in tion in 8:33 PM source source data data Baso# 0.0 0.0 - x10(3)/ No No Mar 14 0.2 mcL informa informa 2013 tion in tion in 8:33 PM source source data data CBC Observa Value Referen Units Interpr Notes Date tion ce etation Range LEUKOCY 6.2 4.0 - x10(3)/ No No Mar 14 GRETA 11.0 mcL informa informa 2013 tion in tion in 8:33 PM source source data data Erythro 4.64 4.30 - x10(6)/ No No Mar 14 cytes 5.81 mcL informa informa 2013 [#/volu tion in tion in 8:33 PM me] in source source Blood data data by Automat ed count Hemoglo 13.9 13.5 - gm/dL No No Apr 03 bin 17.1 informa informa 2014 [Mass/v tion in tion in 8:33 PM olume] source source in data data Blood Hematoc 41.0 38.9 - % No No Apr 03 rit 51.6 informa informa 2014 [Volume tion in tion in 8:33 PM source source Fractio data data n] of Blood by Automat ed count Erythro 88.3 82.5 - fL No No Apr 03 cyte 99.8 informa informa 2014 mean tion in tion in 8:33 PM corpusc source source ular data data volume [Entiti c volume] by Automat ed count Erythro 29.9 27.0 - pg No No Apr 03 cyte 34.3 informa informa [...] No Apr 03 cyte 15.0 informa informa 2013 distrib tion in tion in 8:33 PM ution source source width data data [Ratio] by Automat ed count Platele 179 144 - x10(3)/ No No Apr 03 ts 423 mcL informa informa 2013 [#/volu tion in tion in 8:33 PM me] in source source Blood data data by Automat ed count MPV 8.6 6.8 - fL No No Apr 03 10.8 informa informa 2014 tion in tion [...] No < 100 Apr 03 Calcula informa 2013 kailey tion in 8:25 PM source Optimal [...] No < 200 Apr 03 dulce informa 2013 [Percen tion in 8:25 PM tile] source Desirab data le\.br\ 200 - 239 Borderl ine High\.b r\>= 240 High TRIGLYC 134 <=150 mg/dL No < 150 Apr 03 ERIDES. informa 2013 TOTAL tion in Normal\ 8:25 PM source [...] Cholest 99 <=100 mg/dL No < 100 Feb 12 dulce in informa 2014 LDL tion in 1:21 AM [Mass/v source Optimal olume] data \.br\10 in 0 - 129 Serum or Near or Plasma above by optimal calcula \.br\13 tion 0 - 159 Borderl ine High\.b r\160 - 189 High\.b r\ >= 190 Very High Lipid Refx Observa Value Referen Units Interpr Notes Date tion ce etation Range Cholest 164 <=200 mg/dL No < 200 Feb 12 dulce informa 2013 [Percen tion in 1:21 AM tile] source Desirab data le\.br\ 200 - 239 Borderl ine High\.b r\>= 240 High TRIGLYC 85 <=150 mg/dL No < 150 Fe 12 ERIDES. informa 2014 TOTAL tion in Normal\ 1:21 AM source .br\150 data - 199 Borderl ine High\.b r\200 - 499 High\.b r\ >= 500 Very High CHOLEST 48 >=40 mg/dL No > 60 Feb 12 EROLS.I informa 2013 N HDL tion in Optimal 1:21 AM source \.br\40 data - 60 Accepta ble\.br \ < 40 Low Free T4 Observa Value Referen Units Interpr Notes Date tion ce etation Range Thyroxi 1.42 0.93 - ng/dL No No Oct 11 ne (T4) 1.70 informa informa 2013 free tion in tion in 7:26 PM [Mass/v source source olume] data data in Serum or Plasma TSH Observa Value Referen Units Interpr Notes Date tion ce etation Range Thyrotr 2.540 0.270 - mcIU/mL No No Oct 11 opin 4.200 informa informa 2013 [Units/ tion in tion in 7:26 PM volume] source source in data data Serum or Plasma Hemogram Observa Value Referen Units Interpr Notes Date tion ce etation Range LEUKOCY 6.7 4.0 - x10(3)/ No No Oct 11 GRETA 11.0 mcL informa informa 2014 tion in tion in 4:50 PM source source data data Erythro 4.95 4.30 - x10(6)/ No No Nov 01 cytes 5.81 mcL informa informa 2013 [#/volu tion in tion in 4:50 PM me] in source source Blood data data by Automat ed count Hemoglo 14.8 13.5 - gm/dL No No Nov 01 bin 17.1 informa informa 2013 [Mass/v tion in tion in 4:50 PM olume] source source in data data Blood Hematoc 43.9 38.9 - % No Nov 01 rit 51.6 informa informa 2013 [Volume tion in tion in 4:50 PM source source Fractio data data n] of Blood by Automat ed count Erythro 88.5 82.5 - fL No Nov 01 cyte 99.8 informa informa 2013 mean tion in tion in 4:50 PM corpusc source source ular data data volume [Entiti c volume] by Automat ed count Erythro 29.8 27.0 - pg No Nov 01 cyte 34.3 informa informa 2013 mean tion in tion in 4:50 PM corpusc source source ular data data hemoglo bin [Entiti c mass] by Automat ed count Erythro 33.7 32.1 - gm/dL No Nov 01 cyte 35.3 informa informa 2013 mean tion in tion in 4:50 PM corpusc source source ular data data hemoglo bin concent ration [Mass/v olume] by Automat ed count Erythro 13.4 11.5 - % No Nov 01 cyte 15.0 informa informa [...] Nov 01 t mean 10.8 informa informa 2014 volume tion in tion in 4:50 PM [Entiti source source c data data volume] in Blood by Automat ed count Vit D 25-OH Observa Value Referen Units Interpr Notes Date tion ce etation Range Vitamin 46.5 30.0 - ng/mL No INTERPR Nov 12 D-25 120.0 informa ETIVE 2013 OH tion [...] Magnesi 1.9 1.6 - mg/dL No No Jul 11 um 2.2 informa informa 2012 [Moles/ tion [...] No < 150 Aug 01 ERIDES. informa 2013 TOTAL tion in Normal\ 6:12 PM source .br\150 data - 199 Borderl ine High\.b r\200 - 499 High\.b r\ >= 500 Very High CHOLEST 43 >=40 mg/dL No > 60 Nov 11 EROLS.I informa 2013 N HDL tion in Optimal 6:12 PM source \.br\40 data - 60 Accepta ble\.br \ < 40 Low Cholest 89 <=100 mg/dL No < 100 Jul 11 dulce in informa 2013 LDL tion in 6:12 PM [Mass/v source [...] Hemoglo 8.8 <=7.0 % High Initial Aug 01 bin 2012 A1c/Hem Diagnos 5:25 PM oglobin tic .total [...] etation Range Thyrotr 2.1181 0.3500 mcIU/mL No No Aug 01 opin - informa informa 2012 [Units/ 4.9400 tion in tion in 5:15 PM volume] source source in data data Serum or Plasma Auto Diff Observa Value Referen Units Interpr Notes Date tion ce etation Range Neutrop 68.9 No % No No Aug 01 hils informa informa informa [...] ed count Eos 3.1 No % No No Jul 11 Percent informa informa informa 2012 tion in tion in tion in 4:33 PM source source source data data data Baso 0.5 No % No No Aug 01 Percent informa informa informa 2012 tion in tion in tion in 4:33 PM source source source data data data Neutrop 4.8 1.8 - x10(3)/ No No Aug 01 hils 7.7 mcL informa informa 2012 [#/volu tion in tion in 4:33 PM me] in source source Blood data data Lymphoc 1.5 0.6 - x10(3)/ No No Aug 01 ytes 4.8 mcL informa informa 2012 [#/volu tion in tion in 4:33 PM me] in source source Blood data data Monocyt 0.4 0.0 - x10(3)/ No No Aug 01 es 1.3 mcL informa informa 2012 [#/volu tion in tion in 4:33 PM me] in source source Blood data data Eosinop 0.2 0.0 - x10(3)/ No No Aug 01 hils 0.5 mcL informa informa 2012 [#/volu tion in tion in 4:33 PM me] in source source Blood data data Basophi 0.0 0.0 - x10(3)/ No No Aug 01 ls 0.2 mcL informa informa 2012 [#/volu tion in tion in 4:33 PM me] in source source Blood data data CBC Observa Value Referen Units Interpr Notes Date tion ce etation Range LEUKOCY 6.9 4.0 - x10(3)/ No No Jul 11 GRETA 11.0 mcL informa informa 2012 tion in tion in 4:33 PM source source data data Erythro 4.70 4.30 - x10(6)/ No No Aug 01 cytes 5.81 mcL informa informa 2012 [#/volu tion in tion in 4:33 PM me] in source source Blood data data by Automat ed count Hemoglo 13.7 13.5 - gm/dL No No Nov 11 bin 17.1 informa informa 2012 [Mass/v tion [...] No Aug 01 cyte 34.3 informa informa 2012 mean tion in tion [...] Interpr Notes Date tion ce etation Range add on testing Hemoglo [...] Notes Date tion ce etation Range Vitamin 53.2 30.0 - ng/mL No INTERPR May 04 D-25 120.0 informa ETIVE 2012 [place] tion in INFORMA 10:07 source TION: [...] ng/mL 0-5.5 ng/mL 0-5.0 ng/mL\. br\\.br \\.br\S herminia [facility] are Laborat ory uses the [employer] ct Total PSA assay, which is [...] assay methods should not be used interch angmark yEmily Caal r the above as guideli paul only. [...] No < 150 May 03 ERIDES. informa 2013 TOTAL tion in Normal\ 9:32 PM source [...] May 03 GRETA 11.0 mcL informa informa 2012 tion in tion in 9:31 PM source source data data Erythro 4.70 4.30 - x10(6)/ No No May 03 cytes 5.81 mcL informa informa 2012 [#/volu tion in tion in 9:31 PM me] in source source Blood data data by Automat ed count Hemoglo 14.4 13.5 - gm/dL No No May 03 bin 17.1 informa informa 2012 [Mass/v tion in tion in 9:31 PM olume] source source in data data Blood Hematoc 42.2 38.9 - % No No May 03 rit 51.6 informa informa 2012 [Volume tion in tion in 9:31 PM source source Fractio data data n] of Blood by Automat ed count Erythro 89.7 82.5 - fL No No May 03 cyte 99.8 informa informa 2012 mean tion in tion in 9:31 PM corpusc source source ular data data volume [Entiti c volume] by Automat ed count Erythro 30.6 27.0 - pg No No May 03 cyte 34.3 informa informa 2012 mean tion in tion in 9:31 PM corpusc source source ular data data hemoglo bin [Entiti c mass] by Automat ed count Erythro 34.1 32.1 - gm/dL No No May 03 cyte 35.3 informa informa 2012 mean tion in tion in 9:31 PM corpusc source source ular data data hemoglo bin concent ration [Mass/v olume] by Automat ed count Erythro 14.0 11.5 - % No No May 03 cyte 15.0 informa informa 2012 distrib tion in tion in 9:31 PM ution source source width data data [Ratio] by Automat ed count Platele 206 144 - x10(3)/ No No May 03 ts 423 mcL informa informa 2012 [#/volu tion in tion in 9:31 PM me] in source source Blood data data by Automat ed count MPV 8.7 6.8 - fL No No May 03 10.8 informa informa 2013 tion in [...] [facility]i ng [facility] There is loss of T2 signal. There [...]
--- OUTSIDE RECORDS SUMMARY | 2017-08-23 11:26 | External Medical Summary Rpt ---
[...] data data data examina tion at the [facility] are Vascula r Laborat ory.\.b r\The complet e report can be found in the [facility] ([facility]) Electro kia Medical Record of [...] data data data examina tion at the [facility] are Vascula r Laborat ory.\.b r\The complet e report can be found in the [facility]) Electro kia Medical Record of the patient [...] data data data examina tion at the [facility] are Vascula r Laborat ory.\.b r\The complet e report can be found in the [facility] ([facility]) Electro kia Medical Record of [...] in 9:24 PM source source data data Glascock# 0.6 0.0 - x10(3)/ No No Feb [...] n\.br\\ .br\849 a.m., 5 Decembe r 14, [id number] \.br\\. br\Pain , 6.3 mCi technet ium [...] source br\St. data data data data Emiliano [facility] Co\.br\ Interpr etive Stateme nts\.br \Sinus rhythm\ [...] in 2:45 PM source source data data Glascock# 0.5 0.0 - x10(3)/ No No Dec [...] .br\Ref erring Physici an(s):\ .br\[facility]\ .br\[address], [place] [address]\.br [phone] (phone) \.br\([phone] (fax)\. 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 Supplem ental\. br\oxyg en [...] in 8:33 PM source source data data Glascock# 0.4 0.0 - x10(3)/ No No Mar [...] ng/mL 0-5.0 ng/mL\. br\\.br \\.br\S herminia Cummings [facility] are Laborat ory uses the [employer] Archite ct Total PSA assay, which is [...] space narrowi ng anddesi [facility]cation [facility] There is loss of T2 signal. [...]
--- NOTE | 2017-08-23 11:54 | Urgent Treatment Center Report ---
History of Present Issue Date/Time Seen by Provider 08/23/17 1149 Visit Reason Pt arrived:Walked Presenting Problem:COUGH, CONGESTION, ACHES X1WK Location if Accident: Onset of symptoms date/time:/ or onset unknown for:MEDICAL HX UNKNOWN Have you (or family members/close friends) recently traveled outside the [place]? N If Yes, where/when: Have you had exposure to infectious disease within the past month? TB? Other? Specify: Patient state that he has been having cough and congestion for over a week States that his throat is sore and he is having sinus pain and congestion State that he has been taking Mucinex but it hasn't been helping much States that today his throat felt worse so he came in to get checked out ALLERGIES Coded Allergies: levofloxacin (From LEVAQUIN) (09/03/15) Home Medications Active Scripts Cyclobenzaprine Hcl (Flexeril) 10 MG PO TID #15 Prov: 06/24/10 ONDANSETRON HCL (Zofran 4MG Tab) 4 MG PO Q6HP PRN NAUSEA AND VOMITING #28 TAB Prov: 09/03/15 Reported Medications Gabapentin (Gralise) 600 MG PO DAILY #90 MORPHINE SULFATE SR/ER (Morphine Sulfate ER) 30 MG PO Q12 #60 HYDROCODONE/ACETAMINOPHEN (Hydrocodon-Acetamin 7.5-325/15) 10 ML PO Q4HP PRN PAIN #120 ONDANSETRON HCL (Ondansetron HCl) 8 MG PO Q4H PRN VOMITING #30 Lisinopril 5 MG PO DAILY #90 INSULIN GLARGINE (Lantus 3ML Solostar Pen) 36 UNITS SC QHS Insulin Aspart, Recombinant (Novolog Flexpen) 1 UNITS SC AC History Medical History General CAD? No Angina: No OR: No Hypertension? No Hyperlipidemia? No CHF? No DVT? No PE? No COPD? No Asthma? No Anemia? No GERD? No Gastric ulcers? No GI Bleed? No Hernia? No Thyroid Problems? No Hypothyroidism? No CVA? No Seizures? No Diabetes? Yes Insulin Dependent: Yes Insulin Pump: No Home FSBS? Yes Renal Insuffiency? No UTI? No Stones? No BPH? No GB Disease: No Nephritic Syndrome? No Asplenia? No Hepatitis? No Sickle Cell Disease? No Arthritis? No Migraines? No Cataracts? No Glaucoma? No MRSA? No HIV? No TB? No Anxiety? No Depression? No Cancer? Yes Site: TESTICULAR More? No Immunization HX DT/Tetanus 1-4 YRS Surgical Hx Previous Surgery?Y Back Surgery TESTICLE REMOVED KNEE SURGERY-R SHOULDER -R HAND-R Family History Family HX Diabetes Yes CAD Yes Hypertension Yes Hyperlipidemia Yes Cancer Yes TB No Social History Smoking Hx Smoker: Current Every Day Smoker Tobacco: Yes Type Cigarettes Packs/day 1 1/2 - 2 Packs Alcohol Alcohol: No Review of Systems All Other Systems Reviewed and Negative ENT nose congestion, throat pain. Respiratory cough Physical Exam Vital Signs Vital Signs Date Time Temp Pulse Resp B/P Pulse O2 O2 Flow FiO2 Ox Delivery Rate 08/23 1136 97.8 18 18 114/63 95 General Appearance normal appearance, WD/WN, no apparent distress Ear, Nose, Throat Throat red, irritated tenderness note maxillary sinuses Respiratory Status Yes: trachea midline, chest symmetrical, non tender chest. No: respiratory distress. Lung Sounds bilateral: normal breath sounds, lungs clear. Cardiovascular normal exam, regular rate/rhythm, no peripheral edema Neurologic alert, normal exam, oriented x 3 Medical Decision Making LABS/Meds/Orders Pt receiving controlled substance in ED? No Results/Orders Current Medication Orders Sig/Jerrica Start time Last Medication Dose Route Stop Time Status Admin Ceftriaxone Sodium 1 GM ONCE ONE 08/23 1200 DC 12/ IM 08/23 1201 1204 Lidocaine HCl 0 ONCE ONE 08/23 1200 DC 12/ IM 08/23 1201 1204 Methylprednisolone 125 MG ONCE ONE 08/23 1200 DC / Sodium Succinate IM 08/23 1201 1205 Ceftriaxone Sodium 0 .STK-MED ONE 08/23 1159 DC .ROUTE Lidocaine HCl 0 .STK-MED ONE 08/23 1159 DC .ROUTE Methylprednisolone 0 .STK-MED ONE 08/23 1159 DC Sodium Succinate .ROUTE Departure Departure Time of Disposition 1207 Disposition DC Home or Self Care(routine) Clinical Impression Primary Impression: Upper respiratory infection Qualifiers: URI type: unspecified URI Qualified Code: J06.9 - Acute upper respiratory infection, unspecified Condition STABLE Patient Instructions Cough, DI for Nasal Congestion, Sore Throat Additional Instructions * Monitor Temp. Tylenol and/or Ibuprofen as needed. ER if fever is no less than 101 despite alternating Tylenol and Ibuprofen * Encourage fluids, water, Gatorade, powerade, pedialyte if /toddler/or child * Warm salt water gargles for throat irritation *Warm fluids *Sore throat lozenges *Sleep elevated *humidifier or vaporizer Lots of rest Increase fluids, water, Gatorade, powerade Follow up IMMEDIATELY for new or worsening of symptoms OR no noticeable improvement over the next 48-72 hours. 911 immediately for any life threatening symptoms such as chest pain or difficulty breathing Discharge Counseling Counseled pt/family regarding diagnosis, medications/RX, home care, follow up needs Prescriptions Current Visit Scripts Fluticasone Propionate (Flonase 50 Mcg Nasal [place]) 2 SPRAY NA DAILY #1 BOT Dextromethorphan Polistirex (Delsym) 10 ML PO Q12H #150 ML at 1208
[2017-08-23] MEDS ORDERED: FLONASE 50 MCG16 GM (12:08)
[2017-08-23] MEDS ORDERED: DELSYM30 MG/5 ML PO (12:08)
[2017-08-23 12:12] VITALS: BP 114/63
[2017-09-07] MEDS ORDERED: INSULIN GL100 UNITS/ SC (17:01)
[2017-09-08] MEDS ORDERED: CYCLOBENZAPRINE10 M1 PO (18:41)
[2017-09-08] MEDS ORDERED: ACETAMINOPHEN &1 TA1 PO (18:46)
[2017-09-08] MEDS ORDERED: SIMVASTATIN40 MG PO (18:49)
[2017-09-08] MEDS ORDERED: KAPIDEX60 MG PO (18:50)
[2017-09-08] MEDS ORDERED: MONTELUKAST SOD10 MG PO (18:50)
[2017-09-09] MEDS ORDERED: TAMIFLU 75MG CA75 MG PO (07:37)
[2017-09-09] MEDS ORDERED: OMNICEF 300 MG300 MG PO (07:37)
[2017-09-09] MEDS ORDERED: ZITHROMAX Z-PA250 M2 PO (07:37)
== END 2017-08-23 12:13 | disposition home or self-care (01) ==
LOC: UTC 11:16
DX: J06.9 Acute upper respiratory infection, unspecified (principal); F17.210 Nicotine dependence, cigarettes, uncomplicated; E11.9 Type 2 diabetes mellitus without complications; Z79.4 Long term (current) use of insulin; Z88.1 Allergy status to other antibiotic agents

== ENCOUNTER 2017-09-02 04:52 | Emergency (ER) | payer MEDICARE ==
[~2017-09-02] VITALS: Ht 193 cm; Wt 93.9 kg
[~2017-09-02 04:52] MED LIST changes: +DELSYM30 MG/5 ML PO; +FLONASE 50 MCG16 GM
--- OUTSIDE RECORDS SUMMARY | 2017-09-02 05:07 | External Medical Summary Rpt | CCD ---
Author Author , DAMION BRUNO Address Unknown Phone [email or web address] Support Name Relationship Address Phone SUDHAKAR, Next [...]
--- OUTSIDE RECORDS SUMMARY | 2017-09-02 05:07 | External Medical Summary Rpt | CCD ---
Author Author , DAMION BRUNO Address Unknown Phone [email or web address] Support Name Relationship Address Phone SUDHAKAR, Next [...]
--- OUTSIDE RECORDS SUMMARY | 2017-09-02 05:07 | External Medical Summary Rpt | CCD ---
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 Z79.899 Other long 03-05-2016 term (current) drug therapy G99.0 Autonomic 06-20-2015 neuropathy in diseases classified elsewhere I10 Essential 08-24-2014 (primary) hypertensio n E78.00 Pure 08-24-2014 hypercholes terolemia, unspecified E10.40 Type 1 diabetes mellitus with diabetic neuropathy, unspecified E10.41 Type 1 diabetes mellitus with diabetic mononeuropa thy E10.649 Type 1 diabetes mellitus with hypoglycemi a without coma E11.51 Type 2 diabetes mellitus with diabetic peripheral angiopathy without gangrene E11.9 TYPE 2 DIABETES MELLITUS WITHOUT COMPLICATIO NS E16.2 HYPOGLYCEMI A, UNSPECIFIED E78.0 Pure hypercholes terolemia H90.3 Sensorineur al hearing loss, bilateral I73.9 Peripheral vascular disease, unspecified I77.1 Stricture of artery K21.9 Gastro-esop hageal reflux disease without esophagitis K29.70 GASTRITIS, UNSPECIFIED , WITHOUT BLEEDING K31.84 Gastropares is M54.16 Radiculopat hy, lumbar region N52.9 Male erectile dysfunction , unspecified R07.89 Other chest pain S83.92XA SPRAIN OF UNSPECIFIED SITE OF LEFT KNEE, INITIAL ENCOUNTER Z71.6 Tobacco abuse counseling Z91.19 Patient's noncomplian ce with other medical treatment and regimen
--- OUTSIDE RECORDS SUMMARY | 2017-09-02 05:07 | External Medical Summary Rpt | CCD ---
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
--- OUTSIDE RECORDS SUMMARY | 2017-09-02 05:09 | External Medical Summary Rpt ---
[...] data data data examina tion at the [facility] are Vascula r Laborat ory.\.b r\The complet e report can be found in the [facility] ([facility]) [...] data data data examina tion at the [facility] are Vascula r Laborat ory.\.b r\The complet e report can be found in the [facility]) Electro kia Medical Record of the patient [...] data data data examina tion at the [facility] are Vascula r Laborat ory.\.b r\The complet e report can be found in the [facility] ([facility]) [...] in 9:24 PM source source data data Schuyler# 0.6 0.0 - x10(3)/ No No Feb [...] n\.br\\ .br\849 a.m., 5 Decembe r 14, [id number] \.br\\. br\Pain , 6.3 mCi technet ium [...] source br\St. data data data data Emiliano [facility] Co\.br\ Interpr etive Stateme nts\.br \Sinus rhythm\ [...] in 2:45 PM source source data data Schuyler# 0.5 0.0 - x10(3)/ No No Dec [...] BOOKER\ .br\[address], [place] [address]\.br \ (phone) \.br\([phone] (fax)\. br\\.br \\.br\A SA Class: P2 [...] \pulse oximetr y, blood pressur e, and production corrugator ing was done. Supplem ental\. br\oxyg en [...] in 8:33 PM source source data data Schuyler# 0.4 0.0 - x10(3)/ No No Mar [...] ng/mL 0-5.0 ng/mL\. br\\.br \\.br\S herminia Cummings [facility] are Laborat ory uses the [employer] Archite ct Total PSA assay, which is [...] space narrowi ng [facility]desi [facility]cation [facility] There is loss of T2 [...]
--- OUTSIDE RECORDS SUMMARY | 2017-09-02 05:09 | External Medical Summary Rpt ---
[...] e report can be found in the [facility] ([facility]) Electro kia Medical Record of the [...] e report can be found in the [facility]) Electro [employer]ia Medical Record of the [...] e report can be found in the [facility] ([facility]) Electro [employer]ia Medical Record of the [...] in 9:24 PM source source data data Morris# 0.6 0.0 - x10(3)/ No No Feb [...] n\.br\\ .br\849 a.m., 5 Decembe r 14, [id number] \.br\\. br\Pain , 6.3 mCi technet ium [...] source br\St. data data data data Emiliano [facility] Co\.br\ Interpr etive Stateme nts\.br \Sinus [...] in 2:45 PM source source data data Morris# 0.5 0.0 - x10(3)/ No No Dec [...] BOOKER\ .br\[address], [place] [address]\.br \ (phone) \.br\([phone] (fax)\. br\\.br \\.br\A SA Class: P2 [...] \pulse oximetr y, blood pressur e, and classroom monitor ing was done. Supplem ental\. br\oxyg [...] in 8:33 PM source source data data Morris# 0.4 0.0 - x10(3)/ No No Mar [...] ng/mL 0-5.0 ng/mL\. br\\.br \\.br\S herminia Cummings [facility] are Laborat ory uses the [employer] Archite ct Total PSA assay, which is [...] [facility] narrowi ng [facility]desi [facility]cation [facility] There is loss of T2 signal. There [...]
[2017-09-02 05:21] LABS: HEMOGLOBIN 13.9 g/dL (14.1-18.0); LYMPH # 2.3 K/mm3 (0.7-4.5); LYMPH % 34.4 % (10-50)
--- NOTE | 2017-09-02 07:31 | Emergency Room Report ---
History of Present Illness Time Seen by [id number] Presenting Problem in Triage Pt arrived:Wheelchair Presenting Problem:FELL DOWN 2 STEPS, C/O PAIN TO LEFT SWELLING TO LEFT WRIST. C/O PAIN ALL OVER. C/O TROUBLE HURTING ALL OVER. 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 N Clinical Suspician of Infection? N Mental Status: 1 - Regular (Normal Baseline) Sepsis Risk:Low Sepsis Risk Have you (or family members/close friends) recently traveled outside the [place]? N If Yes, where/when: Have you had exposure to infectious disease within the past month? N TB? Other? Specify: Source patient, RN notes reviewed, family, old records Exam Limitations no limitations Comment trip injury and injured lt wrist with no loc or abd pain -this am Cardiac Chest Pain Chest pain indicative of cardiac No Timing/Duration this morning Severity moderate ALLERGIES Coded Allergies: levofloxacin (From LEVAQUIN) (Intermediate, I-RASH 09/02/17) Home Medications Active Scripts Fluticasone Propionate (Flonase 50 Mcg Nasal [place]) 2 SPRAY NA DAILY #1 BOT Prov: 08/23/17 Cyclobenzaprine Hcl (Flexeril) 10 MG PO TID #15 Prov: 06/24/10 Reported Medications Gabapentin (Gralise) 600 MG PO DAILY #90 MORPHINE SULFATE SR/ER (Morphine Sulfate ER) 30 MG PO Q12 #60 HYDROCODONE/ACETAMINOPHEN (Hydrocodon-Acetamin 7.5-325/15) 10 ML PO Q4HP PRN PAIN #120 ONDANSETRON HCL (Ondansetron HCl) 8 MG PO Q4H PRN VOMITING #30 Lisinopril 5 MG PO DAILY #90 INSULIN GLARGINE (Lantus 3ML Solostar Pen) 36 UNITS SC QHS Insulin Aspart, Recombinant (Novolog Flexpen) 1 UNITS SC AC History Medical History General CAD? No Angina: No NM: No Hypertension? No Hyperlipidemia? No CHF? No DVT? No PE? No COPD? No Asthma? No Anemia? No GERD? No Gastric ulcers? No GI Bleed? No Hernia? No Thyroid Problems? No Hypothyroidism? No CVA? No Seizures? No Diabetes? Yes Insulin Dependent: Yes Insulin Pump: No Home FSBS? Yes Renal Insuffiency? No End Stage Renal Disease? No UTI? No Stones? No BPH? No GB Disease: No Nephritic Syndrome? No Asplenia? No Hepatitis? No Sickle Cell Disease? No Arthritis? No Migraines? No Cataracts? No Glaucoma? No MRSA? No HIV? No TB? No Anxiety? No Depression? No Cancer? Yes Site: TESTICULAR More? No Immunization Hx DT/Tetanus 1-4 YRS Surgical Hx Previous Surgery?Y Back Surgery TESTICLE REMOVED KNEE SURGERY-R SHOULDER -R HAND-R Family History Family Hx Diabetes Yes CAD Yes Hypertension Yes Hyperlipidemia Yes Cancer Yes TB No Social History Smoking Hx Smoker: Current Every Day Smoker Tobacco: Yes Type Cigarettes Packs/day 1 1/2 - 2 Packs Alcohol Alcohol: No Drugs none Review of Systems All Other Systems Reviewed and Negative Constitutional denies diaphoresis, denies fever Eyes denies drainage ENT denies: ear pain, epistaxis, throat pain. Respiratory denies cough, denies shortness of breath, denies wheezing Cardiovascular denies chest pain, denies palpitations, denies syncope Gastrointestinal see HPI, nausea, denies vomiting Genitourinary denies: dysuria, frequency, hesitancy, hematuria. Musculoskeletal see HPI, joint pain, denies joint swelling, denies neck pain Skin denies rash Psychiatric/Neurological denies headache, denies seizure Physical Exam Vital Signs Vital Signs Date Time Temp Pulse Resp B/P Pulse O2 O2 Flow FiO2 Ox Delivery Rate 09/02 0623 75 18 167/82 97 09/02 0455 98.2 62 18 99/62 98 - WBC >12,000 or <4,000 or 10% bands? 2 or more SIRS Criteria Met? B/P:167/82 MAP:74 Creatinine >2.0? UA output<0.5ml/kg/hr for 2 hrs? Platelet count >100,000? Lactate >2.0mmol/1? INR >1.2 or PTT > than 60 sec? Evidence of Organ Dysfunction? Provider documented clinical suspician of infection? N Sepsis Criteria Count: 0 Sepsis Risk: Low Sepsis Risk General Appearance no apparent distress Eye Exam - bilateral eye PERRL, bilateral eye EOMI Ear, Nose, Throat normal ENT inspection Neck tender lateral Respiratory Status No: respiratory distress. Cardiovascular regular rate/rhythm Peripheral Pulses Pulses normal Yes Gastrointestinal soft Extremities pelvis stable, swelling, deformity lt wrist with neurovascular ok Strength 4 Upper Ext (L), 4 Upper Ext (R), 4 Lower Ext (L), 4 Lower Ext (R) Neurologic alert, multimedia authoring specialist II-XII nml as tested, no motor/sensory deficits Glascow Coma Scale Glascow Coma Scale Response Value EYE response: 4 Spontaneously 4 MOTOR response: 6 OBEYS 6 VERBAL response: 5 Oriented & Converses 5 Total 15 Reflexes Reflexes normal No Mental status normal mood/affect Skin intact Medical Decision Making LABS/Meds/Orders Pt receiving controlled substance in ED? No Results/Orders Laboratory Tests 09/02/1725: POC Glucose 129 H 09/02/17 05: Sodium 140, Potassium 3.5, Chloride 104, Carbon Dioxide 30, BUN 22 H, Creatinine 1.0, Estimated Creat Clear 110, Estimated GFR (MDRD) 77, Glucose 54 L, Calcium 9.1, Total Bilirubin 0.2, AST 18, ALT 20, Alkaline Phosphatase 123 H , Total Protein 7.3, Albumin 3.8, Globulin 3.5 H, Albumin/Globulin Ratio 1.1, WBC 6.7, RBC 4.75, Hgb 13.9 L, Hct 42.7, MCV 90.0, RDW 13.0, Plt Count 211, MPV 8.2, Gran % 55.8, Gran # 3.7, Lymphocytes % 34.4, Monocytes % 6.0, Eosinophils % 2.8, Basophils % 1.0, Lymphocytes # 2.3, Monocytes # 0.4, Eosinophils # 0.2, Basophils # 0.1, PUBS MCHC 32.6, MCH 29.3 Current Medication Orders Sig/Jerrica Start time Last Medication Dose Route Stop Time Status Admin Sodium Chloride 1,000 ML .Q1H1M 09/02 0545 DC 09/02 IV 09/02 0645 0520 Sodium Chloride 10 ML PRN PRN 09/02 0545 AC IV 09/03 0533 Dextrose 50 ML ONCE ONE 09/02 0530 DC 09/02 IVP 09/02 0531 0515 Sodium Chloride 10 ML PRN PRN 09/02 0515 AC IV 09/03 0503 Sodium Chloride 1,000 ML .STK-MED ONE 09/02 0514 DC IV Dextrose 0 .STK-MED ONE 09/02 0512 DC .ROUTE Orders Procedure Date/time Status DIET-NOTHING BY MOUTH 09/02 B Active STABILIZE JOINT 09/02 07 Active FOREARM-LT 09/02 0543 Active FINGERSTICK BLOOD SUGAR 09/02 0525 Complete FSBS REQUEST BY CARE AREA 09/[address] CERVICAL SPINE W/O CONT. 09/[address] SCAN REQ 09/02 0503 Complete WRIST-3 VIEWS-LT 09/02 0503 Active PELVIS AP ONLY 09/02 0503 Active CHEST-AP VIEW ONLY 09/02 0503 Active IV SALINE LOCK 09/02 0503 Active COMPLETE METABOLIC PANEL 09/02 0503 Complete CBC WITH AUTO DIFF 09/02 0503 Complete XRAY/CT/US XRAY/CT/US 1 XRAY chest, forearm, pelvis, wrist XR interpretation by reviewed by me Xray Results abnormal (wrist fx) XRAY/CT/US 2 CT C-spine CT interpretation by discussed w/radiologist Time results known: 728 CT Results no fracture seen Departure Departure Time of Disposition 07 Disposition DC Home or Self Care(routine) Clinical Impression Primary Impression: Wrist fracture, left Qualifiers: Encounter type: initial encounter Fracture type: closed Qualified Code: S62.102A - Fracture of unspecified carpal bone, left wrist, initial encounter for closed fracture Secondary Impressions: Hypoglycemia Condition STABLE Referrals Pawan HILL,Joaquin GUNTER MD, PATRICIA MONSIVAIS Patient Instructions DI for Wrist Fracture Additional Instructions wear splint and sling and call oertho and pcp for follow up Discharge Counseling Counseled pt/family regarding diagnosis, test results, follow up needs ED Critical Care Critical Care No at 0731
--- NOTE | 2017-09-02 07:36 | RADIOLOGY REPORT PS360 ---
CHEST-AP VIEW ONLY HISTORY: Chest pain following injury fall ORDERING PHYSICIAN: Jose Martin Duggan MD PATIENT AGE: 57 years COMPARISON: 06/09/2014 FINDINGS: Unremarkable cardiovascular structures. There is a nodular density in the right midlung measuring 14 mm. This was present on the previous exam as slightly more prominent but may be related to the technique. This nodule was present also dating back to 09/19/2007 probably benign. The remaining lungs are clear. No acute bony anomalies. IMPRESSION: 1. No acute finding. 2. 14 mm right midlung nodule probably benign. Follow-up may confirm stability.
--- NOTE | 2017-09-02 07:37 | RADIOLOGY REPORT PS360 ---
PELVIS AP ONLY HISTORY: Fall with injury and pain fall ORDERING PHYSICIAN: Jose Martin Duggan MD PATIENT AGE: 57 years COMPARISON: None FINDINGS: No obvious fracture or dislocation. Mild osteoarthritic changes are present in the hips. No lytic or blastic change. IMPRESSION: Mild osteoarthritis of the hips otherwise negative with no acute finding
--- NOTE | 2017-09-02 07:39 | RADIOLOGY REPORT PS360 ---
WRIST-3 VIEWS-LT HISTORY: Posttraumatic pain fall ORDERING PHYSICIAN: Jose Martin Duggan MD PATIENT AGE: 57 years COMPARISON: None FINDINGS: Impacted transverse fracture involving the distal radius 1 cm proximal to the distal articulating surface. There may be a longitudinal component also extending to the articular surface There is minimal dorsal angulation of the distal fracture fragment. Comminuted ulnar styloid avulsion is present. There may be a longitudinal fracture of the distal ulna as well. IMPRESSION: 1. Comminuted mildly impacted distal radial fracture. 2. Comminuted ulnar styloid avulsion injury with longitudinal fracture the distal ulna
--- NOTE | 2017-09-02 07:40 | RADIOLOGY REPORT PS360 ---
FOREARM-LT CLINICAL INDICATION: C/O PAIN, FALL ORDERING PHYSICIAN: Jose Martin Duggan MD PATIENT AGE: 57 years COMPARISON: None FINDINGS: Colles' fracture present with comminuted impacted fracture of the distal radius and ulnar styloid as described in the wrist report. The proximal and mid aspect of the forearm has an unremarkable appearance. IMPRESSION: Colles' fracture of the wrist
--- NOTE | 2017-09-02 07:51 | RADIOLOGY REPORT PS360 ---
CT CERVICAL SPINE W/O CONT INDICATION: Neck pain following injury FALL ORDERING PHYSICIAN: Jose Martin Duggan MD PATIENT AGE: 57 years COMPARISON: None TECHNIQUE: Axial images are obtained without contrast. Sagittal and coronal reformatted images are reviewed as well. FINDINGS: There is normal alignment. No fracture or dislocation is evident. No lytic or blastic change. Minimal bulging disc are present at C3-C4, C4-C5 C5-C6 and C6-C7 with disc osteophyte complex at C6-C7. The lung apices are clear with mild fibrotic changes and small blebs. There is mild chondrocalcinosis of the sternoclavicular joints. IMPRESSION: 1. No acute fracture. 2. Mild cervical spondylosis
[2017-09-02 08:01] VITALS: BP 156/96
[2017-09-07] MEDS ORDERED: INSULIN GL100 UNITS/ SC (17:01)
[2017-09-08] MEDS ORDERED: CYCLOBENZAPRINE10 M1 PO (18:41)
[2017-09-08] MEDS ORDERED: ACETAMINOPHEN &1 TA1 PO (18:46)
[2017-09-08] MEDS ORDERED: SIMVASTATIN40 MG PO (18:49)
[2017-09-08] MEDS ORDERED: KAPIDEX60 MG PO (18:50)
[2017-09-08] MEDS ORDERED: MONTELUKAST SOD10 MG PO (18:50)
[2017-09-09] MEDS ORDERED: TAMIFLU 75MG CA75 MG PO (07:37)
[2017-09-09] MEDS ORDERED: OMNICEF 300 MG300 MG PO (07:37)
[2017-09-09] MEDS ORDERED: ZITHROMAX Z-PA250 M2 PO (07:37)
== END 2017-09-02 08:02 | disposition home or self-care (01) ==
LOC: ER 04:52
PROVIDERS: Emergency Medicine
PROC: 2W3DX1Z Immobilization of Left Lower Arm using Splint (ICD-10-PCS; principal; 2017-09-02)
DX: S62.102A Fracture of unspecified carpal bone, left wrist, initial encounter for closed fracture (principal); F17.210 Nicotine dependence, cigarettes, uncomplicated; E11.9 Type 2 diabetes mellitus without complications; Z79.4 Long term (current) use of insulin; W10.9XXA Fall (on) (from) unspecified stairs and steps, initial encounter; Y92.009 Unspecified place in unspecified non-institutional (private) residence as the place of occurrence of the external cause

== ENCOUNTER → 2017-09-07 | Outpatient (CLI) | payer MEDICARE ==
[~2017-09-07] MED LIST changes: +ACETAMINOPHEN &1 TA1 PO; +CYCLOBENZAPRINE10 M1 PO; +KAPIDEX60 MG PO; +OMNICEF 300 MG300 MG PO; +SIMVASTATIN40 MG PO; +TAMIFLU 75MG CA75 MG PO; +ZITHROMAX Z-PA250 M2 PO
--- NOTE | 2017-09-07 10:43 | RADIOLOGY REPORT PS360 ---
CHEST(2 VIEWS-NOT PORTABLE) Ordering Physician: Joaquin Villalta MD Patient Age: 57 years: Male HISTORY: CHEST CRACKLES TECHNIQUE: PA lateral chest COMPARISON :AP chest 09/02/2017 previous 2 view chest August 2007 FINDINGS . We again see the small elongated nodular density at the right midlung on PA view. It measures at least 17 mm x 10 mm on today's study. It is projected over the anterior fifth rib end. However on the lateral film I would tend to favor more likely resides at the posterior lung.. It is fairly dense for size centrally and may reflect a developing granuloma. 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 These features would tend to support his benign nature. Likely old scar or granulomatous feature. If the the patient is a smoker may want to consider a follow-up CT at some over the next few months to confirm stability as well. The lungs otherwise are better expanded and overall slightly clearer with less vascular engorgement compared to the previous supine study which accentuated upper lobe vessels.. No focal pneumonia. No pleural effusion IMPRESSION: 1. No acute findings. No focal pneumonia. 2. Nodular density right midlung is again seen but appears be a long-standing features similar to studies dating back to 2006. 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 Otherwise Merely Follow-up PA and lateral chest 6 months suggested to additionally confirm stability.
== END ==
LOC: RAD 09:48
DX: R09.89 Other specified symptoms and signs involving the circulatory and respiratory systems (principal)